=== PATIENT | male | born 1985 | race Caucasian/White ===

== ENCOUNTER → 2016-06-30 | Outpatient (REF) | payer MEDICARE, MEDICAID ==
[2016-06-30 15:16] LABS: ALBUMIN 4.3 GM/DL (3.2-5.2); ALBUMIN/GLOBULIN RATIO 1.23 (1.00-1.93); ALKALINE PHOSPHATASE 131 U/L (45-117); ALT/SGPT 45 U/L (12-78); ANION GAP 9 MEQ/L (8-16); AST/SGOT 35 U/L (15-37); BILIRUBIN,TOTAL 0.6 MG/DL (0.2-1.0); BLOOD UREA NITROGEN 16 MG/DL (7-18); CALCIUM LEVEL 9.8 MG/DL (8.5-10.1); CARBON DIOXIDE LEVEL 24 MEQ/L (21-32); CHLORIDE LEVEL 106 MEQ/L (98-107); CHOLESTEROL LEVEL 234 MG/DL (<200); CREATININE FOR GFR 1.08 MG/DL (0.70-1.30); GLOMERULAR FILTRATION RATE > 60.0 (>60); GLUCOSE, FASTING 95 MG/DL (70-105); POTASSIUM SERUM 4.3 MEQ/L (3.5-5.1); SODIUM LEVEL 139 MEQ/L (136-145); TOTAL PROTEIN 7.8 GM/DL (6.4-8.2); TRIGLYCERIDES LEVEL 264 MG/DL (<150)
== END ==
LOC: M SFHCADAM 10:13
PROVIDERS: ATTEND Physician Assistant Medical
DX: I10 Essential (primary) hypertension (principal); F34.1 Dysthymic disorder

== ENCOUNTER → 2016-07-31 | Emergency (ER) | payer MEDICARE, MEDICAID ==
[~2016-07-31] VITALS: Ht 175.3 cm; Wt 117.0 kg
[~2016-07-31] MED LIST: ENAL20TA PO; FLON1SPR; LORazepam 2 MG/ML VIAL (J2060) IV STA; NORCO 5/325MG TABLET (BULK FOR ED) PO ONE; NORCOTAB PO; PROPOFOL 200 MG/20 ML VIAL IV ONE; PROZ20CA11 PO
[2016-07-31 23:05] VITALS: BP 140/74
--- NOTE | 2016-08-01 12:40 | REP ---
RIGHT KNEE: Two views of the right knee are performed. There is lateral patellar dislocation. No definite fracture is seen of the visualized osseous structures. Signed by Nelson Burks MD 08/01/2016 07:48 P
--- NOTE | 2016-08-01 12:41 | REP ---
RIGHT KNEE: Two portable views of the right knee are performed status post reduction of patellar dislocation. Patella now appears to be in normal position, successfully reduced. No definite fracture is seen on these two limited portable views. Signed by Nelson Burks MD 08/01/2016 07:48 P
== END | disposition home or self-care (01) ==
LOC: EDUNIT# 20:50 → EDBD 20:56 → M ED 23:56
DX: S83.014A Lateral dislocation of right patella, initial encounter (principal); S86.911A Strain of unspecified muscle(s) and tendon(s) at lower leg level, right leg, initial encounter; W18.42XA Slipping, tripping and stumbling without falling due to stepping into hole or opening, initial encounter; Y92.89 Other specified places as the place of occurrence of the external cause; Y93.01 Activity, walking, marching and hiking; Y99.8 Other external cause status; Q78.0 Osteogenesis imperfecta; Z79.899 Other long term (current) drug therapy
CPT/HCPCS: 27560; 73560; 73564; 96374; 99152; 99153; 99285; J2060

== ENCOUNTER → 2017-02-05 | Outpatient (REF) | payer MEDICARE, MEDICAID ==
[~2017-02-05] MED LIST changes: -LORazepam 2 MG/ML VIAL (J2060) IV STA; -NORCO 5/325MG TABLET (BULK FOR ED) PO ONE; -PROPOFOL 200 MG/20 ML VIAL IV ONE
== END ==
LOC: M SFHCADAM 10:24
PROVIDERS: ATTEND Physician Assistant Medical
DX: E55.9 Vitamin D deficiency, unspecified (principal)

== ENCOUNTER → 2017-10-26 | Outpatient (REF) | payer MEDICARE, MEDICAID ==
[2017-10-26 19:27] LABS: BASO # 0.1 10^3/uL (0.0-0.2); BASO % 1.3 % (0.0-1.0); EOS # 0.3 10^3/uL (0.0-0.50); EOS % 3.4 % (0.0-3.0); HEMATOCRIT 47.7 % (42.0-52.0); HEMOGLOBIN 16.4 g/dl (13.5-17.5); IMMATURE GRANULOCYTE % 0.6 % (0-3.0); LYMPH # 2.7 10^3/uL (1.5-4.5); LYMPH % 27.6 % (24.0-44.0); MEAN CORPUSCULAR HEMOGLOBIN 30.5 pg (27.0-33.0); MEAN CORPUSCULAR HGB CONC 34.4 g/dl (32.0-36.5); MEAN CORPUSCULAR VOLUME 88.7 fl (80.0-96.0); MONO # 0.9 10^3/uL (0.0-0.8); MONO % 9.5 % (0.0-5.0); NEUTROPHILS # 5.6 10^3/uL (1.8-7.7); NEUTROPHILS % 57.6 % (36.0-66.0); PLATELET COUNT, AUTOMATED 302 10^3/uL (150-450); RED BLOOD COUNT 5.38 10^6/uL (4.30-6.10); WHITE BLOOD COUNT 9.7 10^3/uL (4.0-10.0)
[2017-10-26 19:54] LABS: ESTIMATED AVERAGE GLUCOSE 111 MG/DL (60-110); HEMOGLOBIN A1c 5.5 %
[2017-10-26 20:08] LABS: URIC ACID 7.5 MG/DL (3.5-7.2)
[2017-10-26 20:33] LABS: ALBUMIN 4.2 GM/DL (3.2-5.2); ALBUMIN/GLOBULIN RATIO 1.24 (1.00-1.93); ALKALINE PHOSPHATASE 116 U/L (45-117); ALT/SGPT 47 U/L (12-78); ANION GAP 7 MEQ/L (8-16); AST/SGOT 30 U/L (7-37); BILIRUBIN,TOTAL 0.4 MG/DL (0.2-1.0); BLOOD UREA NITROGEN 14 MG/DL (7-18); CALCIUM LEVEL 9.4 MG/DL (8.5-10.1); CARBON DIOXIDE LEVEL 25 MEQ/L (21-32); CHLORIDE LEVEL 108 MEQ/L (98-107); CHOLESTEROL LEVEL 224 MG/DL (<200); CHOLESTEROL RISK RATIO 7.225 (<5); CREATININE FOR GFR 0.92 MG/DL (0.70-1.30); GLOMERULAR FILTRATION RATE > 60.0 (>60); GLUCOSE, FASTING 95 MG/DL (70-100); HDL CHOLESTEROL 31 MG/DL (>40); NON-HDL-C 193 MG/DL; POTASSIUM SERUM 4.2 MEQ/L (3.5-5.1); SODIUM LEVEL 140 MEQ/L (136-145); THYROID STIMULATING HORMONE 0.889 uIU/ML (0.358-3.740); TOTAL PROTEIN 7.6 GM/DL (6.4-8.2); TRIGLYCERIDES LEVEL 699 MG/DL (<150)
== END ==
LOC: M SFHCADAM 13:58
DX: M1A.9XX0 Chronic gout, unspecified, without tophus (tophi) (principal); F34.1 Dysthymic disorder; I10 Essential (primary) hypertension; E55.9 Vitamin D deficiency, unspecified; E66.01 Morbid (severe) obesity due to excess calories; Z68.41 Body mass index [BMI] 40.0-44.9, adult; E78.4 Other hyperlipidemia; J30.1 Allergic rhinitis due to pollen; Q78.0 Osteogenesis imperfecta
CPT/HCPCS: 84443

== ENCOUNTER → 2018-08-04 | Outpatient (REF) | payer MEDICARE, MEDICAID ==
[~2018-08-04] MED LIST changes: +HYDR-3715 PO; -NORCOTAB PO
[2018-08-04 13:21] LABS: BASO # 0.2 10^3/uL (0.0-0.2); BASO % 1.7 % (0.0-1.0); EOS # 0.4 10^3/uL (0.0-0.50); HEMATOCRIT 49.9 % (42.0-52.0); HEMOGLOBIN 17.2 g/dl (13.5-17.5); LYMPH # 2.1 10^3/uL (1.5-4.5); LYMPH % 22.8 % (24.0-44.0); MEAN CORPUSCULAR HEMOGLOBIN 30.4 pg (27.0-33.0); MEAN CORPUSCULAR HGB CONC 34.5 g/dl (32.0-36.5); MEAN CORPUSCULAR VOLUME 88.3 fl (80.0-96.0); MONO # 0.9 10^3/uL (0.0-0.8); MONO % 9.9 % (0.0-5.0); NEUTROPHILS # 5.6 10^3/uL (1.8-7.7); NEUTROPHILS % 61.2 % (36.0-66.0); PLATELET COUNT, AUTOMATED 304 10^3/uL (150-450); RED BLOOD COUNT 5.65 10^6/uL (4.30-6.10); WHITE BLOOD COUNT 9.2 10^3/uL (4.0-10.0)
[2018-08-04 13:39] LABS: ALBUMIN 4.3 GM/DL (3.2-5.2); ALT/SGPT 35 U/L (12-78); BILIRUBIN,TOTAL 0.4 MG/DL (0.2-1.0); BLOOD UREA NITROGEN 15 MG/DL (7-18); CALCIUM LEVEL 10.3 MG/DL (8.5-10.1); CARBON DIOXIDE LEVEL 26 MEQ/L (21-32); CHLORIDE LEVEL 106 MEQ/L (98-107); CHOLESTEROL LEVEL 219 MG/DL (<200); CHOLESTEROL RISK RATIO 6.257 (<5); CREATININE FOR GFR 0.96 MG/DL (0.70-1.30); GLOMERULAR FILTRATION RATE > 60.0 (>60); GLUCOSE, FASTING 102 MG/DL (70-100); HDL CHOLESTEROL 35 MG/DL (>40); LDL CHOLESTEROL 141 MG/DL (<100); NON-HDL-C 184 MG/DL; POTASSIUM SERUM 4.1 MEQ/L (3.5-5.1); SODIUM LEVEL 139 MEQ/L (136-145); TOTAL 25(OH) VITAMIN D 18.7 NG/ML (30.0-100.0); TOTAL PROTEIN 7.5 GM/DL (6.4-8.2); TRIGLYCERIDES LEVEL 216 MG/DL (<150); URIC ACID 8.4 MG/DL (3.5-7.2)
== END ==
LOC: M SFHCADAM 07:58
PROVIDERS: ATTEND Physician Assistant Medical
DX: E55.9 Vitamin D deficiency, unspecified (principal); E78.49 Other hyperlipidemia; M1A.9XX0 Chronic gout, unspecified, without tophus (tophi); E78.1 Pure hyperglyceridemia

== ENCOUNTER → 2018-09-21 | Outpatient (REF) | payer MEDICARE, MEDICAID ==
[2018-09-21 13:31] LABS: HEMOGLOBIN A1c 5.7 %
== END ==
LOC: M SFHCADAM 09:55
PROVIDERS: ATTEND Physician Assistant Medical
DX: R73.01 Impaired fasting glucose (principal); M1A.0790 Idiopathic chronic gout, unspecified ankle and foot, without tophus (tophi)

== ENCOUNTER → 2019-02-21 | Outpatient (REF) | payer MEDICARE, MEDICAID ==
[2019-02-21 12:51] LABS: ALBUMIN 4.1 GM/DL (3.2-5.2); ALT/SGPT 44 U/L (12-78); BILIRUBIN,TOTAL 0.5 MG/DL (0.2-1.0); BLOOD UREA NITROGEN 11 MG/DL (7-18); CALCIUM LEVEL 9.5 MG/DL (8.5-10.1); CARBON DIOXIDE LEVEL 26 MEQ/L (21-32); CHLORIDE LEVEL 108 MEQ/L (98-107); CHOLESTEROL LEVEL 226 MG/DL (<200); CHOLESTEROL RISK RATIO 6.277 (<5); CREATININE FOR GFR 0.95 MG/DL (0.70-1.30); GLOMERULAR FILTRATION RATE > 60.0 (>60); GLUCOSE, FASTING 102 MG/DL (70-100); HDL CHOLESTEROL 36 MG/DL (>40); LDL CHOLESTEROL 116 MG/DL (<100); NON-HDL-C 190 MG/DL; POTASSIUM SERUM 4.3 MEQ/L (3.5-5.1); SODIUM LEVEL 140 MEQ/L (136-145); TOTAL PROTEIN 7.9 GM/DL (6.4-8.2); TRIGLYCERIDES LEVEL 372 MG/DL (<150)
[2019-02-21 13:37] LABS: HEMOGLOBIN A1c 5.5 %
== END ==
LOC: M SFHCADAM 09:59
PROVIDERS: ATTEND Physician Assistant Medical
DX: M1A.9XX0 Chronic gout, unspecified, without tophus (tophi) (principal); E78.1 Pure hyperglyceridemia

== ENCOUNTER → 2019-07-01 | Outpatient (CLI) | payer MEDICARE, MEDICAID ==
--- NOTE | 2019-07-01 15:05 | REP ---
ELBOW: REASON: Pain. FINDINGS: There is no acute fracture, dislocation, subluxation, or joint effusion. Electronically Signed by Juarez Rowe DO 07/01/2019 03:14 P
== END ==
LOC: M ADAMS 13:23
PROVIDERS: ATTEND Physician Assistant
DX: M25.521 Pain in right elbow (principal)

== ENCOUNTER → 2019-09-06 | Outpatient (REF) | payer MEDICARE, MEDICAID ==
[2019-09-06 13:34] LABS: HEMOGLOBIN A1c 5.6 %
[2019-09-06 13:49] LABS: ALBUMIN 4.1 GM/DL (3.2-5.2); ALT/SGPT 37 U/L (12-78); BILIRUBIN,TOTAL 0.5 MG/DL (0.2-1.0); BLOOD UREA NITROGEN 16 MG/DL (7-18); CALCIUM LEVEL 9.3 MG/DL (8.5-10.1); CARBON DIOXIDE LEVEL 26 MEQ/L (21-32); CHLORIDE LEVEL 111 MEQ/L (98-107); CHOLESTEROL LEVEL 218 MG/DL (<200); CHOLESTEROL RISK RATIO 6.055 (<5); CREATININE FOR GFR 0.98 MG/DL (0.70-1.30); GLOMERULAR FILTRATION RATE > 60.0 (>60); GLUCOSE, FASTING 91 MG/DL (70-100); HDL CHOLESTEROL 36 MG/DL (>40); LDL CHOLESTEROL 122 MG/DL (<100); NON-HDL-C 182 MG/DL; POTASSIUM SERUM 4.4 MEQ/L (3.5-5.1); SODIUM LEVEL 142 MEQ/L (136-145); THYROID STIMULATING HORMONE 0.584 uIU/ML (0.358-3.740); TOTAL 25(OH) VITAMIN D 23.1 NG/ML (30.0-100.0); TOTAL PROTEIN 7.3 GM/DL (6.4-8.2); TRIGLYCERIDES LEVEL 300 MG/DL (<150); URIC ACID 5.4 MG/DL (3.5-7.2)
== END ==
LOC: M SFHCADAM 11:08
PROVIDERS: ATTEND Physician Assistant Medical
DX: E55.9 Vitamin D deficiency, unspecified (principal); E78.1 Pure hyperglyceridemia; E78.2 Mixed hyperlipidemia; R73.01 Impaired fasting glucose; M1A.9XX0 Chronic gout, unspecified, without tophus (tophi); Z79.899 Other long term (current) drug therapy

== ENCOUNTER → 2020-01-07 | Outpatient (CLI) | payer MEDICARE, MEDICAID ==
[~2020-01-07] MED LIST changes: +ECOT81TA5 PO; -ENAL20TA PO; +ENAL20TA11 PO; +HYDR25TAB PO; +OXYC-517 PO; +PRED20TA PO; +ZYLO300T6 PO
== END ==
LOC: M LABSMTC 08:17
PROVIDERS: ATTEND Anesthesiology
DX: Z01.812 Encounter for preprocedural laboratory examination (principal); Z20.828 Contact with and (suspected) exposure to other viral communicable diseases
CPT/HCPCS: C9803; U0003

== ENCOUNTER 2020-01-12 07:27 | Inpatient (IN) | payer MEDICARE, MEDICAID ==
--- NOTE | 2020-01-11 11:49 | HPE ---
DATE OF ANTICIPATED ADMISSION: 01/12/2020 CHIEF COMPLAINT: Right foot deformity. HISTORY OF PRESENT ILLNESS: Stefano Lyman is a pleasant, 34-year-old male who is here in regard to his right foot deformity. He is set up for surgery tomorrow. He is having pain in his foot and has a fairly significant deformity. PAST MEDICAL HISTORY: 1. Hypertension. 2. Osteogenesis imperfecta. PAST SURGICAL HISTORY: 1. Left femur. 2. Left hip. 3. Left elbow. 4. Left wrist. ALLERGIES: No known drug allergies. 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 He lives alone. He does not smoke. PHYSICAL EXAMINATION: General: Well-appearing, alert and oriented, no acute distress. Pulmonary: Regular and unlabored breathing. Cardiovascular: Regular, dorsalis pedis pulse. Musculoskeletal: In the right foot there is a supination and deformity associated with dislocation of the great toe. He is neurovascularly intact. IMAGING: Right foot x-rays show dorsiflexed 1st metatarsal and subluxation of the great toe. IMPRESSION: Right foot deformity. PLAN: Patient will be admitted to the hospital postoperatively. He will be undergoing surgical correction of his right foot deformity. Risks and benefits of surgery were discussed with him in detail and include but are not limited to infection, damage to nerves and blood vessels, continued pain and stiffness, need for additional procedures. Informed consent was obtained in the office. All of his questions were answered and he was in agreement with this plan. GRETA
[2020-01-12] VITALS (9 sets, daily range): BP systolic 145–165; BP diastolic 80–99; O2SAT 92
[~2020-01-12] VITALS: Ht 177.8 cm; Wt 127.5 kg
[~2020-01-12 07:27] MED LIST changes: -ECOT81TA5 PO; -HYDR25TAB PO; +LR 1,000 ML IV ONE; +MIDAZOLAM INJ 2MG/2ML VIAL (J2250 PER 1MG) IV SCH; -OXYC-517 PO; -PRED20TA PO; +fentaNYL 100 MCG/2 ML INJECTION (J3010) IV SCH
[2020-01-12] MEDS ORDERED: ROPIvacaine 0.5% 30ML INJECTION (J2795 PER 1MG) ONE (07:28)
[2020-01-12] MEDS ORDERED: PRED20TA PO (07:57)
[2020-01-12] MEDS ORDERED: HYDR25TAB PO (07:57)
[2020-01-12] MEDS ORDERED: ceFAZolin 2 GM/D5W 50 ML IV BAG (J0690 PER 500MG) As Ordered ONE (08:28)
[2020-01-12] MEDS ORDERED: fentaNYL 100 MCG/2 ML INJECTION (J3010) As Ordered ONE ×4 (08:39→13:20)
[2020-01-12] MEDS ORDERED: MIDAZOLAM INJ 2MG/2ML VIAL (J2250 PER 1MG) As Ordered ONE ×2 (08:39→09:01)
[2020-01-12] MEDS ORDERED: ceFAZolin SOD 2 GM in IV 1 EA IV ONE (09:00)
[2020-01-12] MEDS ORDERED: LIDOCAINE 2% 100MG/5ML SDV (FOR ANES.) As Ordered ONE (09:01)
[2020-01-12] MEDS ORDERED: ONDANSETRON 4MG/2ML VIAL As Ordered ONE (09:01)
[2020-01-12] MEDS ORDERED: METOCLOPRAMIDE INJ 10MG/2ML VIAL (J2765 PER 1) As Ordered ONE (09:01)
[2020-01-12] MEDS ORDERED: propofoL 200 MG/20 ML VIAL As Ordered ONE (09:01)
[2020-01-12] MEDS ORDERED: PHENYLephrine HCL 500 MCG/5 ML (100MCG/ML) SYRINGE (J2370) As Ordered ONE (10:40)
[2020-01-12] MEDS ORDERED: ePHEDrine SULFATE 25 MG/5 ML(5MG/ML) SYRINGE As Ordered ONE (10:40)
[2020-01-12] MEDS ORDERED: VASOPRESSIN INJ 20 UNITS/ML VIAL As Ordered ONE (11:08)
[2020-01-12] MEDS ORDERED: ROCURONIUM BROMIDE 50 MG/5 ML VIAL As Ordered ONE (11:43)
[2020-01-12] MEDS ORDERED: SUGAMMADEX SODIUM 500 MG/5 ML VIAL (BRIDION) As Ordered ONE (13:20)
[2020-01-12] MEDS: LABETALOL 100MG/20ML VIAL IV SCH ×2 (14:00→14:05)
--- NOTE | 2020-01-12 14:08 | REP ---
INDICATION: RIGHT FOOT DEFORMITIES - MINI C-ARM. COMPARISON: CT 09/26/2019. TECHNIQUE: Multiple C-arm views right foot performed. FINDINGS: Metallic plate and screws are placed, bridging the base of 1st metatarsal to the adjacent medial cuneiform, also the head of the 1st metatarsal to the 1st proximal phalanx. IMPRESSION: 64 seconds fluoroscopy time utilized. <Electronically signed by Nelson Burks > 01/12/20 [id number]
[2020-01-12] MEDS ORDERED: LABETALOL 100MG/20ML VIAL As Ordered ONE (14:19)
[2020-01-12] MEDS ORDERED: ONDANSETRON 4MG/2ML VIAL IV PRN ×2 (14:30)
[2020-01-12] MEDS ORDERED: oxyCODONE 5MG TAB PO PRN ×3 (14:30)
[2020-01-12] MEDS ORDERED: fentaNYL 100 MCG/2 ML INJECTION (J3010) IV PRN (14:30)
[2020-01-12] MEDS ORDERED: LR 1,000 ML IV SCH ×2 (14:30)
[2020-01-12] MEDS ORDERED: MORPHINE 2 MG/ML 1ML VIAL (J2270) IV PRN (14:30)
[2020-01-12] MEDS: ACETAMINOPHEN 500 MG TAB PO SCH ×2 (15:00→21:04)
[2020-01-12] MEDS: ceFAZolin SOD 2 GM in IV 1 EA IV SCH (18:52)
[2020-01-13] MEDS: ceFAZolin SOD 2 GM in IV 1 EA IV SCH ×2 (01:48→09:24)
[2020-01-13 02:00] VITALS: BP 150/78
[2020-01-13 02:16] VITALS: BP 155/89
[2020-01-13] MEDS: ACETAMINOPHEN 500 MG TAB PO SCH ×2 (05:48→14:33)
[2020-01-13 06:00] VITALS: BP 152/88
[2020-01-13] MEDS ORDERED: ECOT81TA5 PO (06:11)
[2020-01-13] MEDS ORDERED: OXYC-517 PO (06:11)
[2020-01-13 09:00] VITALS: O2SAT 97
[2020-01-13] MEDS ORDERED: INFLUENZA QUADRIVALENT PF VACCINE 0.5ML SYRINGE IM ONE (09:00)
[2020-01-13] MEDS ORDERED: ASPIRIN 81 MG ENTERIC TAB PO SCH (09:00)
[2020-01-13] MEDS ORDERED: ceFAZolin SOD 2 GM in IV 1 EA IV ONE ×2 (14:00→15:30)
[2020-01-13 14:15] VITALS: BP 160/94
[2020-01-13 14:30] VITALS: BP 146/88
--- NOTE | 2020-01-23 07:18 | DS ---
DATE OF ADMISSION: 01/12/2020 DATE OF DISCHARGE: 01/13/2020 ATTENDING PHYSICIAN: Nallely Buitrago MD ADMITTING DIAGNOSIS: Right foot deformity. DISCHARGE DIAGNOSIS: Right foot deformity; status post right first MTP arthrodesis with the use of calcaneal bone graft from the right side. OTHER DIAGNOSES: Hypertension and osteogenesis imperfecta. DISCHARGE DIAGNOSIS: Right foot deformity; status post right first TMT arthrodesis and first MTP arthrodesis with the use of calcaneal bone grafting. HISTORY: This is a 34-year-old male patient with progressively worsening deformity to the right foot. It affected his activities of daily living. He elected for surgery for his symptoms. Operation performed was a right TMT arthrodesis and right first MTP arthrodesis with the use of right calcaneal bone graft. HOSPITAL COURSE: The patient was admitted on the day of surgery and underwent the above listed procedure. The procedure was well tolerated by the patient without incident. Hospital stay was without complications. He was up with physical therapy per the protocol. He was non-weightbearing on his right lower extremity. He will use aspirin b.i.d. per protocol for DVT prophylaxis. He was given instructions to include but not limited to wound monitoring and activity limitation and his weightbearing status. He will use oral pain medications for pain control. He will resume his preoperative medications and diet. He will follow-up in our office in 7 to 10 days for surgical follow-up. Please refer to the medical record for further details. GRETA
--- NOTE | 2020-02-26 09:34 | RO ---
OPERATIVE NOTE DATE OF OPERATION: 01/12/2020 PREOPERATIVE DIAGNOSIS: Right complex foot deformity. POSTOPERATIVE DIAGNOSIS: Right complex foot deformity. PROCEDURE: 1. Right tarsometatarsal arthrodesis with insertion of allograft wedge for correction of dorsiflexion deformity. 2. Right 1st metatarsophalangeal joint arthrodesis. 3. Right calcaneal bone graft. 4. Use of the mini C-arm. Please note, we will bill a modifier 22 for this case given the complex deformity correction. SURGEON: Nallely Buitrago MD RESOURCING ADVISOR: ROCCO Barnett ESTIMATED BLOOD LOSS: 100 cc COMPLICATIONS: None. CONDITION: Stable in recovery. INDICATOINS: Stefano Lyman is a 34-year-old male with osteogenesis imperfecta. He has sustained many fractures throughout this life and has developed a complex deformity mainly through his forefoot with almost complete dislocation of his great toe and dorsiflexion of the 1st metatarsal. He has failed conservative measures. Risks and benefits of the surgery were discussed with him in detail, include but are not limited to infection, damage to nerves and blood vessels, continued pain and stiffness and need for additional procedures. Informed consent was obtained. OPERATIVE PROCEDURE: The patient was met in the preoperative holding area where his right lower extremity was marked as the correct operative site. He was taken to the operating room and placed in the supine position on the operating room table. He was given antibiotics within 60 minutes prior to incision. The right lower extremity was prepped and draped in the normal sterile fashion. An official time-out was held where the correct the patient, operative side and operative procedure were verified. The right lower extremity was exsanguinated with an Esmarch tourniquet and the tourniquet was inflated to 250 mmHg. An incision was made over the first tarsometatarsal (TMP) joint extending down over the 1st MTP joints. The 1st TMP joint capsule was incised. Cartilage was removed from both sides of the joint. The joint was further prepared with subchondral drilling with a 0-062 K-wire and fish-scaling with a Hickory osteotome. There was a quite severe dorsiflexion deformity through the 1st ray. This was unable to be fully corrected just with plantar flexion at the TMP joint. I then decided to use an Arthrex allograft wedge to help plantar flex down the joint. This was about a 4 mm wedge. It worked nicely. When I was able to cut the deformity, it was pinned in place using two 0.062 K-wires. An incision was made over the lateral heel. Careful dissection of the bone was performed and 2 to 3 plugs of calcaneal bone graft was removed. The area was irrigated and closed with a 3-0 Vicryl with 2-0 nylon. Some of the calcaneal bone graft had been placed in TMP joint prior to pinning. At this point, my attention was turned to 1st MTP joint. There was quite a significant varus deformity at the 1st MTP joint with near complete dislocation of the toe. The toe was brought back to a more neutral position. I left it in slight varus, as otherwise it would be encroaching on the second toe and would necessitate further surgery to other all toes to completely correct it. The toe and forefoot were plantigrade in a good position upon examination with a flat plate. The great toe was just slightly dorsiflexed at the MTP joints, but there was good plantar flexion through the 1st TMP joint where he had the prior deformity. The 1st MTP joint was prepared similarly to the TMP joint. A calcaneal bone graft was inserted. The toe was pinned in place. After I had the deformity reduced, I then proceeded with fixation. I used a 4-0 cannulated screw across the 1st TMP joint. There is good compression of the joint. I further secured this using an Arthrex plate. For the s1st MTP joint, I similarly used a lag across the joint and then I used a straight plate across the 1st MTP joint given his deformity. During the case, mini C-arm was used by myself in AP, Oblique and lateral views. Hardware placement and deformity correction was satisfactory. Copious irrigation was performed. The capsule was closed on the MTP joint and TMP joint with 0 Vicryl. The subcutaneous tissues were closed with 3-0 Vicryl and skin was closed with 3-0 nylon. Sterile dressing was applied followed by a well-padded splint. The patient was extubated and transferred to the recovery room in stable condition. ROCCO Barnett was present for the entire case and was essential for soft tissue retraction, hardware placement and overall decrease tourniquet time. PLAN: The patient will be nonweightbearing for approximately 8 weeks. He will need to be in a cast or splint for the first four weeks. He will be on aspirin for deep venous thrombosis (DVT) prophylaxis. I will see him back in two weeks for suture removal.
== END 2020-01-13 15:37 | disposition home or self-care (01) | DRG 505 ==
LOC: M SDC 07:27 → M MS5PR 15:00 → M SDC 15:27 → M ED INP 15:27 → M MS5PR 15:30
PROVIDERS: ADMIT Orthopaedic Surgery; ATTEND Orthopaedic Surgery
PROC: 0SGL07Z Fusion of Left Tarsometatarsal Joint with Autologous Tissue Substitute, Open Approach (ICD-10-PCS; 2020-01-12)
PROC: 0SGM07Z Fusion of Right Metatarsal-Phalangeal Joint with Autologous Tissue Substitute, Open Approach (ICD-10-PCS; principal; 2020-01-12 08:45)
DX: Q78.0 Osteogenesis imperfecta (principal); Q68.8 Other specified congenital musculoskeletal deformities; I10 Essential (primary) hypertension; Z79.899 Other long term (current) drug therapy

== ENCOUNTER 2020-04-26 02:06 | Emergency (ER) | payer MEDICARE, MEDICAID ==
[~2020-04-26] VITALS: Ht 175.3 cm; Wt 122.9 kg
[2020-04-26 02:06] VITALS: BP 194/116
[~2020-04-26 02:06] MED LIST changes: +ECOT81TA5 PO; +HYDR25TAB PO; -LR 1,000 ML IV ONE; -MIDAZOLAM INJ 2MG/2ML VIAL (J2250 PER 1MG) IV SCH; +OXYC-517 PO; +PRED20TA PO; -fentaNYL 100 MCG/2 ML INJECTION (J3010) IV SCH
--- OUTSIDE RECORDS SUMMARY | 2020-04-26 02:12 | CCD | Continuity of Care Document ---
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 Name Role Phone SandhuMami [facility] AUTM Hugh Silverman MD Unavailable Problems Active Problems Provider Date Closed fracture of olecranon process of ulna Onset: 01/10/1999 Essential hypertension Onset: 02/07/2016 Social History Type Date Description Comments Sex Unknown Tobacco Use Start: Unknown Never Smoked Cigarettes ETOH Use Denies alcohol use Tobacco Use Start: Unknown Denies Smoking Smoking Status Reviewed: 04/16/20 Denies Smoking Allergies, Adverse Reactions, Alerts Description No Known Drug Allergies Medications Active Medications SIG Qnty Indications Ordering Provide r Date Oxycodone HCL 5mg Tablets 1 -2 tablets by mouth every four hours as needed for post surgical pain 30tabs Nallely Buitrago MD 01/10/2020 Prozac Capsules 1 po qd Unknown Fosamax 70mg Tablets 1 tab by mouth weekly. take with water, 30 minutes before eating. do not lie down for 30 minutes Unknown Allopurinol 300mg Tablets Mami [facility], [facility] Enalapril Maleate 20mg Tablets [facility], [facility] Hydrochlorothiazide 25mg Tablets Mami Grady, [facility] Chlorhexidine Gluconate 0.12% Solution Unknown Prednisone 20mg Tablets Portia Cruz PA Fluoxetine HCL 20mg Capsules [facility], [facility] Cefdinir 300mg Capsules Page Junior PA Immunizations Description No Information Available Vital Signs Date Vital Result Comment 02/26/2020 11:00am Body Temperature 96.2 F 01/19/2020 3:18pm Body Temperature 96.0 F Results Test Acquired Date Facility Test Result H/L Range Note Order 11/15/2019 [facility] nter Surgery <pending> Procedures Date Code Description Status 04/19/2020 24597 Therapeutic Procedure, Each 15 M inutes Completed 04/16/2020 48730 Manual Therapy Each 15 Minutes C ompleted 04/16/2020 68321 Therapeutic Procedure, Each 15 M inutes Completed 04/16/2020 47183 X-Ray Foot Complete Completed 04/11/2020 70923 Manual Therapy Each 15 Minutes C ompleted 04/11/2020 19225 Therapeutic Procedure, Each 15 M inutes Completed 04/09/2020 12865 Therapeutic Procedure, Each 15 M inutes Completed 04/05/2020 56992 Therapeutic Procedure, Each 15 M inutes Completed 04/02/2020 10404 Therapeutic Procedure, Each 15 M inutes Completed 03/29/2020 14205 Physical Therapy Eval - Low Comp lexity Completed 03/26/2020 39294 X-Ray Foot Complete Completed 03/12/2020 18190 X-Ray Foot Complete Completed 02/26/2020 44217 X-Ray Foot Complete Completed 02/01/2020 67482 X-Ray Foot Complete Completed 01/26/2020 26510 Apply Splint Short Leg Completed 01/19/2020 70966 X-Ray Foot Complete Completed 01/19/2020 77425 Apply Splint Short Leg Completed 01/12/2020 24412 Arthrodesis Great Toe MP JT Comp leted 01/12/2020 73457 Arthrodesis Midtarsal/Tarsometat arsal Single Completed 01/12/2020 06865 Arthrodesis Midtarsal/Tarsometat arsal Single Completed 01/12/2020 22314 Remove Bone For Graft Minor/Smal l Completed 01/12/2020 Remove Bone For Graft Minor/Smal l Completed Medical Devices Description No Information Available Encounters Type Date Location Provider Dx Diagnosis Office Visit 03/26/2020 10:00a Ashley Buitrago MD Z47. 89 Encounter for other orthopedic aftercare Z98.1 Arthrodesis status Assessments Date Code Description Provider 04/19/2020 Z47.89 Encounter for other orthopedic a ftercare Dino Patel PT, DPT 04/19/2020 Z98.1 Arthrodesis status Dino cesar, PT, DPT 04/16/2020 Z47.89 Encounter for other orthopedic a ftercare Becky Scee P.T.A. 04/16/2020 Z47.89 Encounter for other orthopedic a ftercare Nallely Buitrago MD 04/16/2020 Z98.1 Arthrodesis status Becky Scee P.T.A. 04/16/2020 Z98.1 Arthrodesis status Nallely hdez MD 04/11/2020 Z47.89 Encounter for other orthopedic a ftercare Becky Scee P.T.A. 04/11/2020 Z98.1 Arthrodesis status Becky Scee P.T.A. 04/09/2020 Z47.89 Encounter for other orthopedic a ftercare Danamarie Ortolano, SENIOR RESEARCH CONSULTANT 04/09/2020 Z98.1 Arthrodesis status Danamarie Ort toni, SENIOR RESEARCH CONSULTANT 04/05/2020 Z47.89 Encounter for other orthopedic a ftercare Becky Scee P.T.A. 04/05/2020 Z98.1 Arthrodesis status Becky Scee P.T.A. 04/02/2020 Z47.89 Encounter for other orthopedic a ftercare Becky Scee P.T.A. 04/02/2020 Z98.1 Arthrodesis status Becky Scee P.T.A. 03/29/2020 Z47.89 Encounter for other orthopedic a ftercare Dino Patel, PT, DPT 03/29/2020 Z98.1 Arthrodesis status Dino cesar, PT, DPT 03/26/2020 Z47.89 Encounter for other orthopedic a ftercare Nallely Buitrago MD 03/26/2020 Z98.1 Arthrodesis status Nallely hdez MD 03/12/2020 Z47.89 Encounter for other orthopedic a ftercare Nallely Buitrago MD 03/12/2020 Z98.1 Arthrodesis status Nallely hdez MD 02/26/2020 Z47.89 Encounter for other orthopedic a ftrakanare Nallely Buitrago MD 02/26/2020 Z98.1 Arthrodesis status Nallely hdez MD 02/01/2020 Z47.89 Encounter for other orthopedic a ftrakanare Nallely Buitrago MD 02/01/2020 Z98.1 Arthrodesis status Nallely hdez MD 01/26/2020 Z47.89 Encounter for other orthopedic a ftercare Peiter Millard PA-C 01/26/2020 Z47.89 Encounter for other orthopedic a ftercare Pieter Millard PA-C 01/26/2020 Z98.1 Arthrodesis status Pieter deal PA-C 01/26/2020 Z47.89 Encounter for other orthopedic a ftrakanare Nallely Buitrago MD 01/26/2020 Z98.1 Arthrodesis status Nallely hdez MD 01/26/2020 Z98.1 Arthrodesis status Pieter deal PA-C 01/19/2020 Z47.89 Encounter for other orthopedic a ftrakanare Nallely Buitrago MD 01/19/2020 Z98.1 Arthrodesis status Nallely hdez MD 01/12/2020 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 Pieter Millard PA-C 01/12/2020 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 Nallely Buitrago MD 01/12/2020 Q78.0 Osteogenesis imperfecta Pieter Millard PA-C 01/12/2020 Q78.0 Osteogenesis imperfecta Nallely Buitrago MD 01/11/2020 Z01.818 Encounter for other preprocedura l examination Nallely Buitrago MD 01/11/2020 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 Nallely Buitrago MD 01/11/2020 Q78.0 Osteogenesis imperfecta Nallely Buitrago MD 11/10/2019 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 Nallely Buitrago MD 11/10/2019 Q78.0 Osteogenesis imperfecta Nallely Buitrago MD Plan of Treatment Future Appointment(s):* 04/30/2020 3:00 pm - Becky Steen [facility] at [facility] Therapy * 05/03/2020 2:30 pm - Becky Garcia.T[facility] at Physical Therapy 04/16/2020 - Nallely Buitrago MD* Z47.89 Encounter for other orthopedic aftercare * Z98.1 Arthrodesis status* Follow up:* f/u in 6 weeks with BMS with Xrays right foot wb Functional Status Description No Information Available Mental Status Description No Information Available Referrals Refer to Dr Reason for Referral Status Appt Date Fernando Talbot MD PT BASED ON MED. [facility] TO PT DEPT. NT Created [address] [place] [address], [place] [address] [phone] Fernando Talbot MD SURGERY NO AUTH REQUIRED FO R RT FOOT SURGERY ([id number], [id number],) TO SURGERY NT Created [address] [place] [address], [address] [place] [address] [phone]
--- OUTSIDE RECORDS SUMMARY | 2020-04-26 02:13 | CCD | Continuity of Care Document ---
Author Author Stefano OSMAN PURCHASING EXPEDITOR Organization Unknown Address [address] [address] Phone [phone] Care Team Providers Care Dormitory Supervisor Name Role Phone SandhuMami RPA AUTM Hugh Silverman MD Unavailable Problems Active Problems Provider Date Closed fracture of olecranon process of ulna Onset: 01/10/1999 Essential hypertension Onset: 02/07/2016 Social History Type Date Description Comments Sex Unknown Tobacco Use Start: Unknown Never Smoked Cigarettes ETOH Use Denies alcohol use Tobacco Use Start: Unknown Denies Smoking Smoking Status Reviewed: 09/18/19 Denies Smoking Allergies, Adverse Reactions, Alerts Description [...] minutes Unknown Allopurinol 300mg Tablets [facility]ami [facility], [facility] Enalapril Maleate 20mg Tablets Mami [facility], [facility] Hydrochlorothiazide 25mg Tablets Mami Grady, [facility] Chlorhexidine Gluconate 0.12% Solution Unknown Prednisone 20mg Tablets Portia Cruz PA Fluoxetine HCL 20mg Capsules Mami [facility], [facility] Cefdinir 300mg Capsules [place], ROCCO Brooks Immunizations Description No Information Available Vital Signs Date Vital Result Comment 02/26/2020 11:00am Body Temperature 96.2 F 01/19/2020 3:18pm Body Temperature 96.0 F Results Test Acquired Date Facility Test Result H/L Range Note Order 11/15/2019 [facility] nter Surgery <pending> Procedures Date Code Description Status 04/05/2020 75878 Therapeutic Procedure, Each 15 M inutes Completed 04/02/2020 29873 Therapeutic Procedure, Each 15 M inutes Completed 03/29/2020 37160 Physical Therapy Eval - Low Comp lexity Completed 03/26/2020 08663 X-Ray Foot Complete Completed 03/12/2020 96232 X-Ray Foot Complete Completed 02/26/2020 38715 X-Ray Foot Complete Completed 02/01/2020 61713 X-Ray Foot Complete Completed 01/26/2020 96601 Apply Splint Short Leg Completed 01/19/2020 66045 X-Ray Foot Complete Completed 01/19/2020 07123 Apply Splint Short Leg Completed 01/12/2020 18561 Arthrodesis Great Toe MP JT Comp leted 01/12/2020 35544 Arthrodesis Midtarsal/Tarsometat arsal Single Completed 01/12/2020 17788 Arthrodesis Midtarsal/Tarsometat arsal Single Completed 01/12/2020 67587 Remove Bone For Graft Minor/Smal l Completed 01/12/2020 08960 Remove Bone For Graft Minor/Smal l Completed Medical Devices Description No Information Available Encounters Type Date Location Provider Dx Diagnosis Office Visit 03/26/2020 10:00a Ashley Buitrago MD Z47. 89 Encounter for other orthopedic aftercare Z98.1 Arthrodesis status Assessments Date Code Description Provider 04/05/2020 Z98.1 Arthrodesis status Becky Scee P.T.A. 04/05/2020 Z47.89 Encounter for other orthopedic a ftercare Becky Scee P.T.A. 04/02/2020 Z98.1 Arthrodesis status Becky Scee P.T.A. 04/02/2020 Z47.89 Encounter for other orthopedic a ftercare Becky Scee P.T.A. 03/29/2020 Z98.1 Arthrodesis status Dino cesar, PT, DPT 03/29/2020 Z47.89 Encounter for other orthopedic a ftercare Dino Bah, PT, DPT 03/26/2020 Z47.89 Encounter for other orthopedic a ftrakanare Nallely Buitrago MD 03/26/2020 Z98.1 Arthrodesis status [...] orthopedic a ftercare Pieter Millard PA-C 01/26/2020 Z47.89 Encounter for other orthopedic a ftercare Pieter Millard PA-C 01/26/2020 Z98.1 Arthrodesis status Pieter deal PA-C 01/26/2020 Z47.89 Encounter for other orthopedic a ftercare Nallely Buitrago MD 01/26/2020 Z98.1 Arthrodesis status Nallely hdez MD 01/26/2020 Z98.1 Arthrodesis status Pieter deal PA-C 01/19/2020 Z47.89 Encounter for other orthopedic a ftercare Nallely Buitrago MD 01/19/2020 Z98.1 Arthrodesis status [...] Buitrago MD Plan of Treatment Future Appointment(s):* 04/11/2020 11:30 am - Becky Steen P.T.A. at Physical Therapy * 04/16/2020 10:30 am - Nallely Buitrago MD at [place] Functional Status Description No Information Available Mental Status Description No Information Available Referrals Refer to Reason for Referral Status Appt Date Fernando Talbot MD PT BASED ON MED. [facility] TO PT DEPT. NT Created [address] [place] [address], [place] [address] [phone] Fernando Talbot MD SURGERY NO AUTH REQUIRED FO R RT FOOT SURGERY ([id number], [id number],) TO SURGERY NT Created [address] [place] [address] [phone]
--- OUTSIDE RECORDS SUMMARY | 2020-04-26 02:13 | CCD | Continuity of Care Document ---
Author Author Stefano MALIK MD Organization Unknown Address [address] [address] Phone [phone] Care Team Providers Care Computer Operations Supervisor Name Role Phone Phoebe Mami Ageee [facility] AUTM Hugh Silverman MD AUT Unavailable Problems Active Problems Provider Date Closed [...] needed for post surgical pain 30tabs Nallely Malik MD 01/10/2020 Prozac Capsules 1 po qd Unknown Fosamax 70mg Tablets 1 tab by mouth weekly. take with water, 30 minutes before eating. do not lie down for 30 minutes Unknown Allopurinol 300mg Tablets Mami Heart [facility] Enalapril Maleate 20mg Tablets Mami Heart, [facility] Hydrochlorothiazide 25mg Tablets Mami Grady, [facility] Chlorhexidine Gluconate 0.12% Solution Unknown Prednisone 20mg Tablets Portia Cruz PA Fluoxetine HCL 20mg Capsules Mami Heart [facility] Cefdinir 300mg Capsules Page Junior PA Immunizations Description No Information Available Vital Signs Date Vital Result Comment 02/26/2020 11:00am Body Temperature 96.2 F 01/19/2020 3:18pm Body Temperature 96.0 F Results Test Acquired Date Facility Test Result H/L Range Note Order 11/15/2019 [facility] nter Surgery <pending> Procedures Date Code Description Status 04/19/2020 06609 Therapeutic Procedure, Each 15 M inutes Completed 04/16/2020 49347 Manual Therapy Each 15 Minutes C ompleted 04/16/2020 19002 Therapeutic Procedure, Each 15 M inutes Completed 04/16/2020 06497 X-Ray Foot Complete Completed 04/11/2020 33857 Manual Therapy Each 15 Minutes C ompleted 04/11/2020 82478 Therapeutic Procedure, Each 15 M inutes Completed 04/09/2020 70327 Therapeutic Procedure, Each 15 M inutes Completed 04/05/2020 18782 Therapeutic Procedure, Each 15 M inutes Completed 04/02/2020 79874 Therapeutic Procedure, Each 15 M inutes Completed 03/29/2020 90135 Physical Therapy Eval - Low Comp lexity Completed 03/26/2020 96549 X-Ray Foot Complete Completed 03/12/2020 85327 X-Ray Foot Complete Completed 02/26/2020 94313 X-Ray Foot Complete Completed 02/01/2020 42979 X-Ray Foot Complete Completed 01/26/2020 63477 Apply Splint Short Leg Completed 01/19/2020 28707 X-Ray Foot Complete Completed 01/19/2020 11281 Apply Splint Short Leg Completed 01/12/2020 08469 Arthrodesis Great Toe MP JT Comp leted 01/12/2020 71688 Arthrodesis Midtarsal/Tarsometat arsal Single Completed 01/12/2020 89357 Arthrodesis Midtarsal/Tarsometat arsal Single Completed 01/12/2020 40064 Remove Bone For Graft Minor/Smal l Completed 01/12/2020 Remove Bone For Graft Minor/Smal l Completed Medical Devices Description No Information Available Encounters Type Date Location Provider Dx Diagnosis Office Visit 03/26/2020 10:00a Ashley Malik MD Z47. 89 Encounter for other orthopedic aftercare Z98.1 Arthrodesis status Assessments Date Code Description Provider 04/19/2020 Z47.89 Encounter for other orthopedic a ftercare Dino Bah PT, DPT 04/19/2020 Z98.1 Arthrodesis status Dino cesar, PT, DPT 04/16/2020 Z47.89 Encounter for other orthopedic a ftercare Becky Scee P.T.A. 04/16/2020 Z47.89 Encounter for other orthopedic a ftercare Nallely Malik MD 04/16/2020 Z98.1 Arthrodesis status Becky Scee P.T.A. 04/16/2020 Z98.1 Arthrodesis status Nallely hdez MD 04/11/2020 Z47.89 Encounter for other orthopedic a ftercare Becky Scee P.T.A. 04/11/2020 Z98.1 Arthrodesis status Becky Scee P.T.A. 04/09/2020 Z47.89 Encounter for other orthopedic a ftercare Danamarie Ortolano, TRIM INSTALLER 04/09/2020 Z98.1 Arthrodesis status Danamarie Ort toni, TRIM INSTALLER 04/05/2020 Z47.89 Encounter for other orthopedic a ftercare Becky Scee P.T.A. 04/05/2020 Z98.1 Arthrodesis status Becky Scee P.T.A. 04/02/2020 Z47.89 Encounter for other orthopedic a ftercare Becky Scee P.T.A. 04/02/2020 Z98.1 Arthrodesis status Becky Scee P.T.A. 03/29/2020 Z47.89 Encounter for other orthopedic a ftercare Dino Bah, PT, DPT 03/29/2020 Z98.1 Arthrodesis status Dino cesar, PT, DPT 03/26/2020 Z47.89 Encounter for other orthopedic a ftercare Nallely Malik MD 03/26/2020 Z98.1 Arthrodesis status Nallely hdez MD 03/12/2020 Z47.89 Encounter for other orthopedic a ftercare Nallely Malik MD 03/12/2020 Z98.1 Arthrodesis status Nallely hdez MD 02/26/2020 Z47.89 Encounter for other orthopedic a ftrakanare Nallely Malik MD 02/26/2020 Z98.1 Arthrodesis status Nallely hdez MD 02/01/2020 Z47.89 Encounter for other orthopedic a ftrakanare Nallely Malik MD 02/01/2020 Z98.1 Arthrodesis status Nallely hdez MD 01/26/2020 Z47.89 Encounter for other orthopedic a ftercare Pieter Millard PA-C 01/26/2020 Z47.89 Encounter for other orthopedic a ftercare Pieter Millard PA-C 01/26/2020 Z98.1 Arthrodesis status Pieter deal PA-C 01/26/2020 Z47.89 Encounter for other orthopedic a ftraknaare Nallely Malik MD 01/26/2020 Z98.1 Arthrodesis status Nallely hdez MD 01/26/2020 Z98.1 Arthrodesis status Pieter deal PA-C 01/19/2020 Z47.89 Encounter for other orthopedic a ftrakanare Nallely Malik MD 01/19/2020 Z98.1 Arthrodesis status Nallely hdez MD 01/12/2020 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 Pieter Millard PA-C 01/12/2020 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 at Physical Therapy * 04/30/2020 3:00 pm - Dino Bah, PT, DPT at Physical Therapy * 04/26/2020 2:30 pm - Becky Scee P.T.A. at Physical Therapy * 04/24/2020 1:30 pm - Nelly Olvera PTA at Physical Therapy 04/16/2020 - Nallely Malik MD* Z47.89 Encounter for other orthopedic aftercare * Z98.1 Arthrodesis status* Follow up:* f/u in 6 weeks with BMS with Xrays right foot wb Functional Status Description No Information Available Mental Status Description No Information Available Referrals Refer to Dr Reason for Referral Status Appt Date eFrnando Talbot MD PT BASED ON MED. [facility] TO PT DEPT. NT Created [address] [place] [address], [place] [address] [phone] Fernando Talbot MD SURGERY NO AUTH REQUIRED FO R RT FOOT SURGERY ([id number], [id number],) TO SURGERY NT Created [address] [place] [address] [phone]
--- OUTSIDE RECORDS SUMMARY | 2020-04-26 02:13 | CCD | Continuity of Care Document ---
Author Author Stefano MALIK MD Organization Unknown Address [address] [address] Phone [phone] Care Team Providers Care Cocktail Server Name Role Phone Phoebe Mami Ageee [facility] AUTM Hugh Silverman MD AUT Unavailable [...] minutes Unknown Allopurinol 300mg Tablets Mami Heart [facility] Enalapril Maleate 20mg Tablets Mami Heart, [facility] Hydrochlorothiazide 25mg Tablets Mami Grady, [facility] Chlorhexidine Gluconate 0.12% Solution Unknown Prednisone 20mg Tablets Portia rCuz PA Fluoxetine HCL 20mg Capsules Mami Heart [facility] Cefdinir 300mg Capsules Page Junior PA Immunizations Description No Information Available Vital Signs Date Vital Result Comment 02/26/2020 11:00am Body Temperature 96.2 F 01/19/2020 3:18pm Body Temperature 96.0 F Results Test Acquired Date Facility Test Result H/L Range Note Order 11/15/2019 [facility] nter Surgery <pending> Procedures Date Code Description Status 04/16/2020 51339 Manual Therapy Each 15 Minutes C ompleted 04/16/2020 81036 Therapeutic Procedure, Each 15 M inutes Completed 04/16/2020 24333 X-Ray Foot Complete Completed 04/11/2020 80135 Manual Therapy Each 15 Minutes C ompleted 04/11/2020 23020 Therapeutic Procedure, Each 15 M inutes Completed 04/09/2020 09325 Therapeutic Procedure, Each 15 M inutes Completed 04/05/2020 11280 Therapeutic Procedure, Each 15 M inutes Completed 04/02/2020 67110 Therapeutic Procedure, Each 15 M inutes Completed 03/29/2020 91895 Physical Therapy Eval - Low Comp lexity Completed 03/26/2020 68373 X-Ray Foot Complete Completed 03/12/2020 63200 X-Ray Foot Complete Completed 02/26/2020 74486 X-Ray Foot Complete Completed 02/01/2020 48942 X-Ray Foot Complete Completed 01/26/2020 70746 Apply Splint Short Leg Completed 01/19/2020 19272 X-Ray Foot Complete Completed 01/19/2020 62186 Apply Splint Short Leg Completed 01/12/2020 20412 Arthrodesis Great Toe MP JT Comp leted 01/12/2020 95537 Arthrodesis Midtarsal/Tarsometat arsal Single Completed 01/12/2020 31754 Arthrodesis Midtarsal/Tarsometat arsal Single Completed 01/12/2020 60553 Remove Bone For Graft Minor/Smal l Completed 01/12/2020 47215 Remove Bone For Graft Minor/Smal l Completed Medical Devices Description No Information Available Encounters Type Date Location Provider Dx Diagnosis Office Visit 03/26/2020 10:00a Ashley Malik MD Z47. 89 Encounter for other orthopedic aftercare Z98.1 Arthrodesis status Assessments Date Code Description Provider 04/16/2020 Z98.1 Arthrodesis status Becky Scee P.T.A. 04/16/2020 Z98.1 Arthrodesis status Nallely hdez MD 04/16/2020 Z47.89 Encounter for other orthopedic a ftercare Becky Scee P.T.A. 04/16/2020 Z47.89 Encounter for other orthopedic a ftercare Nallely Malik MD 04/11/2020 Z98.1 Arthrodesis status Becky Scee P.T.A. 04/11/2020 Z47.89 Encounter for other orthopedic a ftercare Becky Scee P.T.A. 04/09/2020 Z98.1 Arthrodesis status Danamarie Ort toni, SEXUAL ASSAULT SOCIAL WORKER 04/09/2020 Z47.89 Encounter for other orthopedic a ftercare Dandianerie Ortolano, SEXUAL ASSAULT SOCIAL WORKER 04/05/2020 Z98.1 Arthrodesis status Becky Scee P.T.A. [...] 02/26/2020 Z47.89 Encounter for other orthopedic a ftercare Nallely Malik MD 02/26/2020 Z98.1 Arthrodesis status Nallely hdez MD 02/01/2020 Z47.89 Encounter for other orthopedic a ftercare Nallely Malik MD 02/01/2020 Z98.1 Arthrodesis status Nallely hdez MD 01/26/2020 Z47.89 Encounter for other orthopedic a ftercare Pieter Millard PA-C 01/26/2020 Z47.89 Encounter for other orthopedic a ftercare Pieter Millard PA-C 01/26/2020 Z98.1 Arthrodesis status Pieter deal PA-C 01/26/2020 Z47.89 Encounter for other orthopedic a ftrakanare Nallely Mlaik MD 01/26/2020 Z98.1 Arthrodesis status Nallely hdez MD 01/26/2020 Z98.1 Arthrodesis status Pieter deal PA-C 01/19/2020 Z47.89 Encounter for other orthopedic a ftercare Nallely Malik MD 01/19/2020 Z98.1 Arthrodesis status [...] Malik MD Plan of Treatment Future Appointment(s):* 04/19/2020 11:30 am - Dino Bah, PT, DPT at Physical Therapy Functional Status Description No Information Available Mental Status Description No Information Available Referrals Refer to Dr Reason for Referral Status Appt Date Fernando Talbot MD PT BASED ON MED. [facility] TO PT DEPT. NT Created [address] [place] [address], [place] [address] [phone] Fernando Talbot MD SURGERY NO AUTH REQUIRED FO R RT FOOT SURGERY ([id number], [id number],) TO SURGERY NT Created [address] [place] [address], [place] [address] [phone]
--- OUTSIDE RECORDS SUMMARY | 2020-04-26 02:14 | CCD | Continuity of Care Document ---
Author Author Stefano MALIK MD Organization Unknown Address [facility] [address] Phone [phone] Care Team Providers Care Crab Butcher Name Role Phone SandhuMami [facility] AUTM [phone] Hugh Silverman MD AUT Unavailable Problems Active [...] minutes Unknown Allopurinol 300mg Tablets Mami Heart [facility] Enalapril Maleate 20mg Tablets Mami Heart, [facility] Hydrochlorothiazide 25mg Tablets Mami Grady, [facility] Chlorhexidine Gluconate 0.12% Solution Unknown Prednisone 20mg Tablets Portia Cruz PA Fluoxetine HCL 20mg Capsules Mami Heart [facility] Cefdinir 300mg Capsules Ring, Page K, PA Immunizations Description No Information Available Vital Signs Date Vital Result Comment 02/26/2020 11:00am Body Temperature 96.2 F 01/19/2020 3:18pm Body Temperature 96.0 F Results Test Acquired Date Facility Test Result H/L Range Note Order 11/15/2019 [facility] nter Surgery <pending> Procedures Date Code Description Status 03/12/2020 72677 X-Ray Foot Complete Completed 02/26/2020 51266 X-Ray Foot Complete Completed 02/01/2020 34301 X-Ray Foot Complete Completed 01/26/2020 49181 Apply Splint Short Leg Completed 01/19/2020 18835 X-Ray Foot Complete Completed 01/19/2020 72665 Apply Splint Short Leg Completed 01/12/2020 18652 Arthrodesis Great Toe MP JT Comp leted 01/12/2020 47622 Arthrodesis Midtarsal/Tarsometat arsal Single Completed 01/12/2020 08467 Arthrodesis Midtarsal/Tarsometat arsal Single Completed 01/12/2020 85991 Remove Bone For Graft Minor/Smal l Completed 01/12/2020 52559 Remove Bone For Graft Minor/Smal l Completed 09/18/2019 73231 X-Ray Foot Complete Completed 09/18/2019 44204 X-Ray Ankle Complete Completed Medical Devices Description No Information Available Encounters Description No Information Available Assessments Date Code Description Provider 03/12/2020 Z47.89 Encounter for other orthopedic a ftercare Nallely Malik MD 02/26/2020 Z47.89 Encounter for other orthopedic [...] other orthopedic a ftercare Nallely Malik MD 01/26/2020 Z98.1 Arthrodesis status Nallely hdez MD 01/26/2020 Z98.1 Arthrodesis status Pieter deal PA-C 01/19/2020 Z47.89 Encounter for other orthopedic a ftgema Malik MD 01/19/2020 Z98.1 Arthrodesis status Nallely [...] foot Nallely Malik MD 01/11/2020 Q78.0 Osteogenesis imperfecttrang Malik MD 11/10/2019 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 Nallely Malik MD 11/10/2019 Q78.0 Osteogenesis imperfecta Nallely Malik MD 09/18/2019 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 Nallely Malik MD 09/18/2019 Q78.0 Osteogenesis imperfecta Nallely Malik MD Plan of Treatment 03/12/2020 - Nallely Malik MD* Z47.89 Encounter for other orthopedic aftercare* Follow up:* aporxx 2 weeks with NMN for rt foot re-check Functional Status Description No Information Available Mental Status Description No Information Available Referrals Refer to Reason for Referral Status Appt Date Fernando Talbot MD SURGERY NO AUTH REQUIRED FO R RT FOOT SURGERY ([id number], [id number],) TO SURGERY NT Created [address] [facility], [address] [place] [address] [phone]
--- OUTSIDE RECORDS SUMMARY | 2020-04-26 02:14 | CCD | Continuity of Care Document ---
Author Author Stefano MALIK MD Organization Unknown Address [address] [address] Phone [phone] Care Team Providers Care Deputy Chief Counsel Name Role Phone Phoebe Mami Ageee [facility] AUTM Hugh Silverman MD AUT Unavailable [...] minutes Unknown Allopurinol 300mg Tablets Mami Heart [facility] Enalapril Maleate 20mg Tablets Mami Heart, [facility] Hydrochlorothiazide 25mg Tablets Mami Grady, [facility] Chlorhexidine Gluconate 0.12% Solution Unknown Prednisone 20mg Tablets Portia Cruz PA Fluoxetine HCL 20mg Capsules Mami Heart [facility] Cefdinir 300mg Capsules Page Junior PA Immunizations Description No Information Available Vital Signs Date Vital Result Comment 02/26/2020 11:00am Body Temperature 96.2 F 01/19/2020 3:18pm Body Temperature 96.0 F Results Test Acquired Date Facility Test Result H/L Range Note Order 11/15/2019 [facility] nter Surgery <pending> Procedures Date Code Description Status 03/29/2020 78133 Physical Therapy Eval - Low Comp lexity Completed 03/26/2020 85675 X-Ray Foot Complete Completed 03/12/2020 56494 X-Ray Foot Complete Completed 02/26/2020 13610 X-Ray Foot Complete Completed 02/01/2020 80272 X-Ray Foot Complete Completed 01/26/2020 17931 Apply Splint Short Leg Completed 01/19/2020 08569 X-Ray Foot Complete Completed 01/19/2020 84689 Apply Splint Short Leg Completed 01/12/2020 41644 Arthrodesis Great Toe MP JT Comp leted 01/12/2020 39823 Arthrodesis Midtarsal/Tarsometat arsal Single Completed 01/12/2020 97984 Arthrodesis Midtarsal/Tarsometat arsal Single Completed 01/12/2020 03048 Remove Bone For Graft Minor/Smal l Completed 01/12/2020 41702 Remove Bone For Graft Minor/Smal l Completed Medical Devices Description No Information Available Encounters Type Date Location Provider Dx Diagnosis Office Visit 03/26/2020 10:00a [place] Mal[place] MD Z47. 89 Encounter for other orthopedic aftercare Z98.1 Arthrodesis status Assessments Date Code Description Provider 03/29/2020 Z98.1 Arthrodesis status Dino cesar, PT, DPT 03/29/2020 Z47.89 Encounter for other orthopedic a ftercare Dino Bah PT, DPT 03/26/2020 Z47.89 Encounter for other orthopedic a ftrakanare Nallely Malik MD 03/26/2020 Z98.1 Arthrodesis status Nallely hdez MD 03/12/2020 Z47.89 Encounter for other orthopedic a ftercare Nallely Malik MD 03/12/2020 Z98.1 Arthrodesis status Nallely hdez MD 02/26/2020 Z47.89 Encounter for other orthopedic a ftrakanare Nallely Malik MD 02/26/2020 Z98.1 Arthrodesis status Nallely hdez MD 02/01/2020 Z47.89 Encounter for other orthopedic a elizabethare Nallely Malik MD 02/01/2020 Z98.1 Arthrodesis status Nallely hdez MD 01/26/2020 Z47.89 Encounter for other orthopedic a ftercare Pieter Millard PA-C 01/26/2020 Z47.89 Encounter for other orthopedic a ftercare Pieter Millard PA-C 01/26/2020 Z98.1 Arthrodesis status Pieter deal PA-C 01/26/2020 Z47.89 Encounter for other orthopedic a ftrakanare Nallely Malik MD 01/26/2020 Z98.1 Arthrodesis status [...] Malik MD Plan of Treatment Future Appointment(s):* 04/05/2020 11:30 am - Becky Steen P.T.A. at Physical Therapy * 04/02/2020 11:30 am - Becky Steen P.T.AWaldemar at Physical Therapy * 04/16/2020 10:30 am - Nallely Malik MD at [place] Functional Status Description No Information Available Mental Status Description No Information Available Referrals Refer to Dr Reason for Referral Status Appt Date Fernando Talbot MD PT BASED ON MED. [facility] TO PT DEPT. NT Created [address] [place] [address], [place] [address] [phone] Fernando Talbot MD SURGERY NO AUTH REQUIRED FO R RT FOOT SURGERY ([id number], [id number],) TO SURGERY NT Created [address] [place] [address], [place] [address] [phone]
--- OUTSIDE RECORDS SUMMARY | 2020-04-26 02:14 | CCD | Continuity of Care Document ---
Author Author Stefano MALIK MD Organization Unknown Address [address] [address] Phone [phone] Care Team Providers Care Territory Account Representative Name Role Phone Phoebe Mami Ageee [facility] AUTM Hugh Silverman MD AUT Unavailable [...] minutes Unknown Allopurinol 300mg Tablets Mami Heart [facility] Enalapril Maleate 20mg Tablets Mami Heart, [facility] Hydrochlorothiazide 25mg Tablets Mami Grady, [facility] Chlorhexidine Gluconate 0.12% Solution Unknown Prednisone 20mg Tablets Portia Cruz PA Fluoxetine HCL 20mg Capsules Mami Heart [facility] Cefdinir 300mg Capsules Page Junior PA Immunizations Description No Information Available Vital Signs Date Vital Result Comment 02/26/2020 11:00am Body Temperature 96.2 F 01/19/2020 3:18pm Body Temperature 96.0 F Results Test Acquired Date Facility Test Result H/L Range Note Order 11/15/2019 [facility] nter Surgery <pending> Procedures Date Code Description Status 03/26/2020 21289 X-Ray Foot Complete Completed 03/12/2020 40749 X-Ray Foot Complete Completed 02/26/2020 75906 X-Ray Foot Complete Completed 02/01/2020 52390 X-Ray Foot Complete Completed 01/26/2020 79940 Apply Splint Short Leg Completed 01/19/2020 89486 X-Ray Foot Complete Completed 01/19/2020 92096 Apply Splint Short Leg Completed 01/12/2020 81386 Arthrodesis Great Toe MP JT Comp leted 01/12/2020 53117 Arthrodesis Midtarsal/Tarsometat arsal Single Completed 01/12/2020 20403 Arthrodesis Midtarsal/Tarsometat arsal Single Completed 01/12/2020 05064 Remove Bone For Graft Minor/Smal l Completed 01/12/2020 82777 Remove Bone For Graft Minor/Smal l Completed Medical Devices Description No Information Available Encounters Description No Information Available Assessments Date Code Description Provider 03/26/2020 Z98.1 Arthrodesis status Nallely hdez MD [...] 01/26/2020 Z47.89 Encounter for other orthopedic a thaddeus Malik MD 01/26/2020 Z98.1 Arthrodesis status Nallely hdez MD 01/26/2020 Z98.1 Arthrodesis status Pieter deal PA-C 01/19/2020 Z47.89 Encounter for other orthopedic a thaddeus Malik MD 01/19/2020 Z98.1 Arthrodesis status Nallely [...] imperfecta Nallely Malik MD Plan of Treatment 03/26/2020 - Nallely Malik MD* Z98.1 Arthrodesis status* Follow up:* in the last week of March for right foot recheck with repeat WB xrays of right foot please. Functional Status Description No Information Available Mental Status Description No Information Available Referrals Refer to Reason for Referral Status Appt Date Fernando Talbot MD SURGERY NO AUTH REQUIRED FO R RT FOOT SURGERY ([id number], [id number],) TO SURGERY NT Created [facility], [address] [place] [address] [phone]
--- OUTSIDE RECORDS SUMMARY | 2020-04-26 02:14 | CCD | Continuity of Care Document ---
Author Author Stefano ARMENTA Organization Unknown Address [address] [place] [address] [place] [address] Phone [phone] Care Team Providers Care House Principal Name Role Phone [facility] AUTM [phone] [facility] AUTM [phone] Problems Description No Information Available Social History Type Date Description Comments Sex Unknown ETOH Use Denies alcohol use Tobacco Use Start: Unknown Patient has never smoked Tobacco Use Start: Unknown The Patient Has Never Vaped Smoking Status Reviewed: 07/01/19 The Patient Has Never Vaped Allergies, Adverse Reactions, Alerts Description No Known Drug Allergies Medications Active Medications SIG Qnty Indications Ordering Provide r Date Ondansetron 8mg Tablets Dispers 1 tablet dissolve on tongue every 8 hours as needed for nausea/vomiting 10tabs A08.39 Dutch Moore JR., M.D. 03/05/2020 Escitalopram Oxalate 10mg Tablets every day Unknown Enalapril Maleate 10mg Tablets Unknown Claritin 10mg Tablets qd Unknown Hydrochlorothiazide Unknown Flomax Unknown Citalopram Hydrobromide 40mg Table ts tke one tab daily Unknown Allopurinol 100mg Tablets 1 tab by mouth qd Unknown Enalapril 20mg Tablets take one (1) tab twice (2) times a day Unknown Immunizations Description No Information Available Vital Signs Date Vital Result Comment 03/05/2020 10:12am BP Systolic 150 mmHg BP Diastolic 88 mmHg Heart Rate 78 /min Respiratory Rate 16 /min O2 % BldC Oximetry 99 % Body Temperature 98.7 F Weight 265.00 lb Height 69 inches 5'9" BMI (Body Mass Index) 39.1 kg/m2 Pain Level 0 07/01/2019 1:12pm BP Systolic 144 mmHg BP Diastolic 94 mmHg Heart Rate 92 /min Respiratory Rate 20 /min O2 % BldC Oximetry 97 % Body Temperature 98.0 F Weight 260.00 lb Height 69 inches 5'9" BMI (Body Mass Index) 38.4 kg/m2 Pain Level 8 Results Description No Information Available Procedures Description No Information Available Medical Devices Description No Information Available Encounters Type Date Location Provider Dx Diagnosis Office Visit 03/05/2020 9:45a [facility] Werner Armenta, P .A. A08.39 Other viral enteritis Z20.828 Contact w and exposure to ot h viral communicable diseases Assessments Date Code Description Provider 03/05/2020 A08.39 Other viral enteritis Werner Armenta, PWaldemarA. 03/05/2020 Z20.828 Contact with and (ro spected) exposure to other viral communicable diseases Werner Armenta, PSavita Plan of Treatment No Information Available Functional Status Description No Information Available Mental Status Description No Information Available Referrals Description No Information Available
--- OUTSIDE RECORDS SUMMARY | 2020-04-26 02:14 | CCD | Continuity of Care Document ---
Author Author Stefano MALIK MD Organization Unknown Address [address] [address] Phone [phone] Care Team Providers Care Research Hydrologist Name Role Phone Phoebe Mami Ageee [facility] AUTM [phone] Hugh Silverman MD AUT Unavailable Problems [...] minutes Unknown Allopurinol 300mg Tablets Mami Heart [facility] Enalapril Maleate 20mg Tablets Mami Heart, [facility] Hydrochlorothiazide 25mg Tablets Mami Grady, [facility] Chlorhexidine Gluconate 0.12% Solution Unknown Prednisone 20mg Tablets Portia Cruz PA Fluoxetine HCL 20mg Capsules Mami Heart [facility] Cefdinir 300mg Capsules Page Junior PA Immunizations Description No Information Available Vital Signs Date Vital Result Comment 02/26/2020 11:00am Body Temperature 96.2 F 01/19/2020 3:18pm Body Temperature 96.0 F Results Test Acquired Date Facility Test Result H/L Range Note Order 11/15/2019 [facility] nter Surgery <pending> Procedures Date Code Description Status 03/12/2020 88212 X-Ray Foot Complete Completed 02/26/2020 56076 X-Ray Foot Complete Completed 02/01/2020 50486 X-Ray Foot Complete Completed 01/26/2020 53289 Apply Splint Short Leg Completed 01/19/2020 86058 X-Ray Foot Complete Completed 01/19/2020 68505 Apply Splint Short Leg Completed 01/12/2020 31051 Arthrodesis Great Toe MP JT Comp leted 01/12/2020 13317 Arthrodesis Midtarsal/Tarsometat arsal Single Completed 01/12/2020 04413 Arthrodesis Midtarsal/Tarsometat arsal Single Completed 01/12/2020 77731 Remove Bone For Graft Minor/Smal l Completed 01/12/2020 56793 Remove Bone For Graft Minor/Smal l Completed [...] 01/26/2020 Z47.89 Encounter for other orthopedic a ftgema Malik MD 01/26/2020 Z98.1 Arthrodesis status Nallely [...] Malik MD Plan of Treatment Future Appointment(s):* 03/26/2020 10:00 am - Nallely Malik MD at [place] 03/12/2020 - Nallely Malik MD* Z47.89 Encounter for other orthopedic aftercare* Follow up:* aporxx 2 weeks with NMN for rt foot re-check * Z98.1 Arthrodesis status Functional Status Description No Information Available Mental Status Description No Information Available Referrals Refer to Dr Reason for Referral Status Appt Date Fernando Talbot MD SURGERY NO AUTH REQUIRED FO R RT FOOT SURGERY ([id number] [id number],) TO SURGERY NT Created [facility], [address] [place] [id number] [phone]
--- OUTSIDE RECORDS SUMMARY | 2020-04-26 02:14 | CCD | Continuity of Care Document ---
Author Author Stefano PATEL DPT Organization Unknown Address [address] [address] Phone [phone] Care Team Providers Care Sulky Driver Name Role Phone SandhuMami [facility] AUTM [phone] Hugh Silverman MD Unavailable Problems Active Problems [...] minutes Unknown Allopurinol 300mg Tablets Mami Heart, [facility] Enalapril Maleate 20mg Tablets Mami Heart, [facility] Hydrochlorothiazide 25mg Tablets Mami Grady, [facility] Chlorhexidine Gluconate 0.12% Solution Unknown Prednisone 20mg Tablets Portia Cruz PA Fluoxetine HCL 20mg Capsules Mami Heart, [facility] Cefdinir 300mg Capsules Page Junior PA Immunizations Description No Information Available Vital Signs Date Vital Result Comment 02/26/2020 11:00am Body Temperature 96.2 F 01/19/2020 3:18pm Body Temperature 96.0 F Results Test Acquired Date Facility Test Result H/L Range Note Order 11/15/2019 [facility] nter Surgery <pending> Procedures Date Code Description Status 03/26/2020 44617 X-Ray Foot Complete Completed 03/12/2020 77166 X-Ray Foot Complete Completed 02/26/2020 98192 X-Ray Foot Complete Completed 02/01/2020 84946 X-Ray Foot Complete Completed 01/26/2020 64390 Apply Splint Short Leg Completed 01/19/2020 37918 X-Ray Foot Complete Completed 01/19/2020 32288 Apply Splint Short Leg Completed 01/12/2020 18242 Arthrodesis Great Toe MP JT Comp leted 01/12/2020 64012 Arthrodesis Midtarsal/Tarsometat arsal Single Completed 01/12/2020 57101 Arthrodesis Midtarsal/Tarsometat arsal Single Completed 01/12/2020 53856 Remove Bone For Graft Minor/Smal l Completed 01/12/2020 02259 Remove Bone For Graft Minor/Smal l Completed Medical Devices Description No Information Available Encounters Type Date Location Provider Dx Diagnosis Office Visit 03/26/2020 10:00a Erinarsenio Buitrago MD Z98. 1 Arthrodesis status Assessments Date Code Description Provider 03/26/2020 Z98.1 Arthrodesis status Nallely hdez MD 03/12/2020 Z47.89 Encounter for other orthopedic a ftrakanare Nallely Buitrago MD 03/12/2020 Z98.1 Arthrodesis status Nallely hdez MD 02/26/2020 Z47.89 Encounter for other orthopedic a ftrakanare Nallely Buitrago MD 02/26/2020 Z98.1 Arthrodesis status Nallely hdez MD 02/01/2020 Z47.89 Encounter for other orthopedic a thaddeus Buitrago MD 02/01/2020 Z98.1 Arthrodesis status Nallely [...] Buitrago MD Plan of Treatment Future Appointment(s):* 04/05/2020 11:30 am - [facility] * 04/02/2020 11:30 am - Becky [facility] * 04/16/2020 10:30 am - Nallely Buitrago MD at [place] Functional Status Description No Information Available Mental Status Description No Information Available Referrals Refer to Reason for Referral Status Appt Date Feranndo Talbot MD PT BASED ON MED. [facility] TO PT DEPT. NT Created [address] [place] [address], [place] [address] [phone] Fernando Talbot MD SURGERY NO AUTH REQUIRED FO R RT FOOT SURGERY ([id number], [id number],) TO SURGERY NT Created [address] [place] [address], [place] [address] [phone]
--- OUTSIDE RECORDS SUMMARY | 2020-04-26 02:15 | CCD ---
Continuity of Care Document (CCD) Created on: 03/04/2020 Stefano Lyman External Reference #: [id number] : 1985 Sex: Male Author Author Stefano MALIK MD Organization Unknown Address [facility] [address] Phone [phone] Care Team Providers Care Manager Shipping Name Role Phone SandhuMami [facility] AUTM [phone] Hugh Silverman MD AUT Unavailable Problems Active [...] Unknown Allopurinol 300mg Tablets Mami Heart [facility] Enalapril Maleate 20mg Tablets Mami Heart, [facility] Hydrochlorothiazide 25mg Tablets Mami Grady, [facility] Chlorhexidine Gluconate 0.12% Solution Unknown Prednisone 20mg Tablets Portia Cruz PA Fluoxetine HCL 20mg Capsules Mami Heart [facility] Cefdinir 300mg Capsules Ring, Page K, PA Immunizations Description No Information Available Vital Signs Date Vital Result Comment 02/26/2020 11:00am Body Temperature 96.2 F 01/19/2020 3:18pm Body Temperature 96.0 F Results Test Acquired Date Facility Test Result H/L Range Note Order 11/15/2019 [facility] nter Surgery <pending> Procedures Date Code Description Status 02/26/2020 81542 X-Ray Foot Complete Completed 02/01/2020 46407 X-Ray Foot Complete Completed 01/26/2020 87283 Apply Splint Short Leg Completed 01/19/2020 79705 X-Ray Foot Complete Completed 01/19/2020 25117 Apply Splint Short Leg Completed 01/12/2020 48826 Arthrodesis Great Toe MP JT Comp leted 01/12/2020 01427 Arthrodesis Midtarsal/Tarsometat arsal Single Completed 01/12/2020 60330 Arthrodesis Midtarsal/Tarsometat arsal Single Completed 01/12/2020 15424 Remove Bone For Graft Minor/Smal l Completed 01/12/2020 40551 Remove Bone For Graft Minor/Smal l Completed 09/18/2019 00871 X-Ray Foot Complete Completed 09/18/2019 53036 X-Ray Ankle Complete Completed Medical Devices Description No Information Available Encounters Type Date Location Provider Dx Diagnosis Office Visit 09/05/2019 8:30a Ashley Becker MD S8 3.014D Lateral dislocation of right patella, subsequent encounter Assessments Date Code Description Provider 02/26/2020 Z47.89 Encounter for other orthopedic a [...] 09/18/2019 Q78.0 Osteogenesis imperfecta Nallely Malik MD 09/05/2019 S83.014D Lateral dislocation of right pat christal, subsequent encounter Saniya Becker MD Plan of Treatment Future Appointment(s):* 03/12/2020 10:15 am - Nallely Malik MD at [place] 02/26/2020 - Nallely Malik MD* Z47.89 Encounter for other orthopedic aftercare* Follow up:* 2 weeks right foot recheck with right foot wb xrays with NMN * Z98.1 Arthrodesis status Functional Status Description No Information Available Mental Status Description No Information Available Referrals Refer to Reason for Referral Status Appt Date Fernando Talbot MD SURGERY NO AUTH REQUIRED FO R RT FOOT SURGERY ([id number], [id number],) TO SURGERY NT Created [address], [address] [place] [address] [phone]
--- OUTSIDE RECORDS SUMMARY | 2020-04-26 02:15 | CCD | Continuity of Care Document ---
Author Author Stefano ARMENTA Organization Unknown Address [address] [place] [address] [place] [address] Phone [phone] Care Team Providers Care Software Engineering Manager Name Role Phone [facility] AUTM [phone] [facility] AUTM [phone] Problems Description No Information Available Social History [...]
--- OUTSIDE RECORDS SUMMARY | 2020-04-26 02:15 | CCD | Continuity of Care Document ---
Author Author Stefano MALIK MD Organization Unknown Address [facility] [address] Phone [phone] Care Team Providers Care Feltmaker And Weigher Name Role Phone SandhuMami [facility] AUTM [phone] Hugh Silverman MD AUT Unavailable Problems Active [...] [facility] Hydrochlorothiazide 25mg Tablets Mami Grady [facility] Chlorhexidine Gluconate 0.12% Solution [...] Test Result H/L Range Note Order 11/15/2019 [facility] nter Surgery <pending> Procedures Date Code Description Status 02/26/2020 68267 X-Ray Foot Complete Completed 02/01/2020 28803 X-Ray Foot Complete Completed 01/26/2020 41216 Apply Splint Short Leg Completed 01/19/2020 08473 X-Ray Foot Complete Completed 01/19/2020 44141 Apply Splint Short Leg Completed 01/12/2020 57001 Arthrodesis Great Toe MP JT Comp leted 01/12/2020 55365 Arthrodesis Midtarsal/Tarsometat arsal Single Completed 01/12/2020 69707 Arthrodesis Midtarsal/Tarsometat arsal Single Completed 01/12/2020 48094 Remove Bone For Graft Minor/Smal l Completed 01/12/2020 67041 Remove Bone For Graft Minor/Smal l Completed 09/18/2019 22704 X-Ray Foot Complete Completed 09/18/2019 27444 X-Ray Ankle Complete Completed Medical Devices Description [...] 10:15 am - Nallely Malik MD at [place] 02/26/2020 - Nallely Malik MD* Z47.89 Encounter for other orthopedic aftercare* Follow up:* 2 weeks right foot recheck with right foot wb xrays with NMN * Z98.1 Arthrodesis status Functional Status Description No Information Available Mental Status Description No Information Available Referrals Refer to Reason for Referral Status Appt Date Fernando Talbot MD SURGERY NO AUTH REQUIRED FO R RT FOOT SURGERY ([id number],) TO SURGERY NT Created [address] [facility], [address] [place] [address] [phone]
--- OUTSIDE RECORDS SUMMARY | 2020-04-26 02:15 | CCD ---
Author Author [facility] Organization [facility] Address Unknown Phone Unavailable Care Team Providers Care Gunner'S Mate M Name Role Phone NALLELY MALIK MD Unavailable Unavailable NALLELY MALIK MD Unavailable Unavailable NALLELY MALIK MD Unavailable Unavailable NALLELY MALIK MD Unavailable Unavailable NALLELY MALIK MD Unavailable Unavailable NALLELY MALIK MD Unavailable Unavailable NALLELY MALIK MD Unavailable Unavailable NALLELY MALIK MD Unavailable Unavailable NALLELY MALIK MD Unavailable Unavailable NALLELY MALIK MD Unavailable Unavailable NALLELY MALIK MD Unavailable Unavailable NALLELY MALIK MD Unavailable Unavailable NALLELY MALIK MD Unavailable Unavailable NALLELY MALIK MD Unavailable Unavailable NALLELY MALIK MD Unavailable Unavailable NALLELY MALIK MD Unavailable Unavailable NALLELY MALIK MD Unavailable Unavailable NALLELY MALIK MD Unavailable Unavailable NALLELY MALIK MD Unavailable Unavailable NALLELY MALIK MD Unavailable Unavailable NALLELY MALIK MD Unavailable Unavailable NALLELY MALIK MD Unavailable Unavailable NALLELY MALIK MD Unavailable Unavailable NALLELY MALIK MD Unavailable Unavailable NALLELY MALIK MD Unavailable Unavailable NALLELY MALIK MD Unavailable Unavailable NALLELY MALIK MD Unavailable Unavailable NALLELY MALIK MD Unavailable Unavailable NALLELY MALIK MD Unavailable Unavailable NALLELY MALIK MD Unavailable Unavailable DEVLIN, KIMBERLY Unavailable Unavailable DEVLIN, KIMBERLY Unavailable Unavailable DEVLIN, KIMBERLY Unavailable Unavailable DEVLIN, KIMBERLY Unavailable Unavailable DEVLIN, KIMBERLY Unavailable Unavailable DEVLIN, KIMBERLY Unavailable Unavailable DEVLIN, KIMBERLY Unavailable Unavailable DEVLIN, KIMBERLY Unavailable Unavailable DEVLIN, KIMBERLY Unavailable Unavailable DEVLIN, KIMBERLY Unavailable Unavailable DEVLIN, KIMBERLY Unavailable Unavailable DEVLIN, KIMBERLY Unavailable Unavailable DEVLIN, KIMBERLY Unavailable Unavailable DEVLIN, KIMBERLY Unavailable Unavailable DEVLIN, KIMBERLY Unavailable Unavailable DEVLIN, KIMBERLY Unavailable Unavailable DEVLIN, KIMBERLY Unavailable Unavailable DEVLIN, KIMBERLY Unavailable Unavailable DEVLIN, KIMBERLY Unavailable Unavailable DEVLIN, KIMBERLY Unavailable Unavailable DEVLIN, KIMBERLY Unavailable Unavailable DEVLIN, KIMBERLY Unavailable Unavailable DEVLIN, KIMBERLY Unavailable Unavailable DEVLIN, KIMBERLY Unavailable Unavailable DEVLIN, KIMBERLY Unavailable Unavailable RING, K PRICILLA PA Unavailable Unavailable RING, K PRICILLA PA Unavailable Unavailable RING, K PRICILLA PA Unavailable Unavailable RING, K PRICILLA PA Unavailable Unavailable RING, K PRICILLA PA Unavailable Unavailable RING, K PRICILLA PA Unavailable Unavailable RING, K PRICILLA PA Unavailable Unavailable RING, K PRICILLA PA Unavailable Unavailable RING, K PRICILLA PA Unavailable Unavailable RING, K PRICILLA PA Unavailable Unavailable RING, K PRICILLA PA Unavailable Unavailable RING, K PRICILLA PA Unavailable Unavailable RING, K PRICILLA PA Unavailable Unavailable RING, K PRICILLA PA Unavailable Unavailable RING, K PRICILLA PA Unavailable Unavailable RING, K PRICILLA PA Unavailable Unavailable RING, K PRICILLA PA Unavailable Unavailable RING, K PRICILLA PA Unavailable Unavailable RING, K PRICILLA PA Unavailable Unavailable RING, K PRICILLA PA Unavailable Unavailable RING, K PRICILLA PA Unavailable Unavailable KATHI, MIRTHA PA Unavailable Unavailable KATHI, MIRTHA PA Unavailable Unavailable KATHI, MIRTHA PA Unavailable Unavailable KATHI, MIRTHA PA Unavailable Unavailable KATHI, MIRTHA PA Unavailable Unavailable KATHI, MIRTHA PA Unavailable Unavailable KATHI, MIRTHA PA Unavailable Unavailable KATHI, MIRTHA PA Unavailable Unavailable KATHI, MIRTHA PA Unavailable Unavailable KATHI, MIRTHA PA Unavailable Unavailable KATHI, MIRTHA PA Unavailable Unavailable KATHI, MIRTHA PA Unavailable Unavailable KATHI, MIRTHA PA Unavailable Unavailable KATHI, MIRTHA PA Unavailable Unavailable KATHI, MIRTHA PA Unavailable Unavailable KATHI, MIRTHA PA Unavailable Unavailable KATHI, MIRTHA PA Unavailable Unavailable KATHI, MIRTHA PA Unavailable Unavailable KATHI, MIRTHA PA Unavailable Unavailable KATHI, MIRTHA PA Unavailable Unavailable KATHI, MIRTHA PA Unavailable Unavailable KATHI, MIRTHA PA Unavailable Unavailable KATHI, MIRTHA PA Unavailable Unavailable KATHI, MIRTHA PA Unavailable Unavailable KATHI, MIRTHA PA Unavailable Unavailable KATHI, MIRTHA PA Unavailable Unavailable KATHI, MIRTHA PA Unavailable Unavailable KATHI, MIRTHA PA Unavailable Unavailable KATHI, MIRTHA PA Unavailable Unavailable KATHI, MIRTHA PA Unavailable Unavailable KATHI, MIRTHA PA Unavailable Unavailable KATHI, MIRTHA PA Unavailable Unavailable KATHI, MIRTHA PA Unavailable Unavailable KATHI, MIRTHA PA Unavailable Unavailable KATHI, MIRTHA PA Unavailable Unavailable KATHI, MIRTHA PA Unavailable Unavailable KATHI, MIRTHA PA Unavailable Unavailable KATHI, MIRTHA PA Unavailable Unavailable Vibha Becker MD Unavailable Unavailable Vibha Becker MD Unavailable Unavailable Vibha Becker MD Unavailable Unavailable Vibha Becker MD Unavailable Unavailable Vibha Becker MD Unavailable Unavailable Vibha Becker MD Unavailable Unavailable Vibha Becker MD Unavailable Unavailable Vibha Becker MD Unavailable Unavailable Vibha Becker MD Unavailable Unavailable Vibha Becker MD Unavailable Unavailable Vibha Becker MD Unavailable Unavailable Vibha Becker MD Unavailable Unavailable Vibha Becker MD Unavailable Unavailable Vibha Becker MD Unavailable Unavailable Vibha Becker MD Unavailable Unavailable Vibha Becker MD Unavailable Unavailable Vibha Becker MD Unavailable Unavailable Vibha Becker MD Unavailable Unavailable Vibha Becker MD Unavailable Unavailable Vibha Becker MD Unavailable Unavailable Vibha Becker MD Unavailable Unavailable Vibha Becker MD Unavailable Unavailable Vibha Becker MD Unavailable Unavailable Vibha Becker MD Unavailable Unavailable Vibha Becker MD Unavailable Unavailable Vibha Becker MD Unavailable Unavailable Vibha Becker MD Unavailable Unavailable VanVibha mackay MD Unavailable Unavailable Vibha Becker MD Unavailable Unavailable BennyeenVibha fernández MD Unavailable Unavailable Vibha Becker MD Unavailable Unavailable Vibha Becker MD Unavailable Unavailable Vibha Becker MD Unavailable Unavailable Vibha Becker MD Unavailable Unavailable Vibha Becker MD Unavailable Unavailable Vibha Becker MD Unavailable Unavailable Vibha Becker MD Unavailable Unavailable Vibha Becker MD Unavailable Unavailable VaneenVibha fernández MD Unavailable Unavailable Vibha Becker MD Unavailable Unavailable Vibha Becker MD Unavailable Unavailable DarriusamVibha MD Unavailable Unavailable Cruz, Alyson Portia PA Unavailable Unavailable Cruz, Alyson Portia PA Unavailable Unavailable Cruz, Alyson Portia PA Unavailable Unavailable Cruz, Alyson Portia PA Unavailable Unavailable Crzu, Alyson Portia PA Unavailable Unavailable Cruz, Alyson Portia PA Unavailable Unavailable Cruz, Alyson Portia PA Unavailable Unavailable Cruz, Alyson Portia PA Unavailable Unavailable Cruz, Alyson Portia PA Unavailable Unavailable Cruz, Alyson Portia PA Unavailable Unavailable NALLELY MALIK MD Unavailable Unavailable NALLELY MALIK MD Unavailable Unavailable NALLELY MALIK MD Unavailable Unavailable NALLELY MALIK MD Unavailable Unavailable NALLELY MALIK MD Unavailable Unavailable NALLELY MALIK MD Unavailable Unavailable NALLELY MALIK MD Unavailable Unavailable NALLELY MALIK MD Unavailable Unavailable NALLELY MALIK MD Unavailable Unavailable NALLELY MALIK MD Unavailable Unavailable NALLELY MALIK MD Unavailable Unavailable NALLELY MALIK MD Unavailable Unavailable NALLELY MALIK MD Unavailable Unavailable NALLELY MALIK MD Unavailable Unavailable NALLELY MALIK MD Unavailable Unavailable NALLELY MALIK MD Unavailable Unavailable NALLELY MALIK MD Unavailable Unavailable NALLELY MALIK MD Unavailable Unavailable NALLELY MALIK MD Unavailable Unavailable NALLELY MALIK MD Unavailable Unavailable NALLELY MALIK MD Unavailable Unavailable NALLELY MALIK MD Unavailable Unavailable NALLELY MALIK MD Unavailable Unavailable NALLELY MALIK MD Unavailable Unavailable NALLELY MALIK MD Unavailable Unavailable NALLELY MALIK MD Unavailable Unavailable NALLELY MALIK MD Unavailable Unavailable MALIK, NALLELY MD Unavailable Unavailable NALLELY MALIK MD Unavailable Unavailable NALLELY MALIK MD Unavailable Unavailable Re-disclosure Warning The records that you are about to access may contain information from federally-assisted alcohol or drug abuse programs. If such information is present, then the following federally mandated warning applies: This information has been disclosed to you from records protected by federal confidentiality rules (42 CFR part 2). The federal rules prohibit you from making any further disclosure of this information unless further disclosure is expressly permitted by the written consent of the person to whom it pertains or as otherwise permitted by 42 CFR part 2. A general authorization for the release of medical or other information is NOT sufficient for this purpose. The Federal rules restrict any use of the information to criminally investigate or prosecute any alcohol or drug abuse patient.The records that you are about to access may contain highly sensitive health information, the redisclosure of which is protected by Article 27-F of the [facility] Public Health law. If you continue you may have access to information: Regarding HIV / AIDS; Provided by facilities licensed or operated by the [facility] Office of Mental Health; or Provided by the [facility] Office for People With Developmental Disabilities. If such information is present, then the following [facility] mandated warning applies: This information has been disclosed to you from confidential records which are protected by state law. State law prohibits you from making any further disclosure of this information without the specific written consent of the person to whom it pertains, or as otherwise permitted by law. Any unauthorized further disclosure in violation of state law may result in a fine or shelter sentence or both. A general authorization for the release of medical or other information is NOT sufficient authorization for further disc losure. Family History Family Member Name Family Member Gender Family Member Status Date o f Status Description Data Source(s) Unknown Unknown Problem [facility] ([facility]) father's side Unknown Female Problem MED[facility] ([facility]) Unknown Female Problem [facility] ([facility]) Unknown Unknown Problem [facility] ([facility] Encounters Encounter Providers Location Date Indications Data Source(s ) Office Visit Attender: NALLELY MALIK MD Physical Therapy 09:00:00 AM EST MED[facility] ([facility]) Outpatient Attender: MIRTHA Masona ry 03/05/2020 08:45:00 AM EST [facility] ([facility]) [place] [address] [facility] [place] [address] 12/29/2019 12:00:00 AM EDT [facility] Outpatient Referrer: NALLELY MALIK MD 09/21/2019 09:49:0 0 AM EDT [facility] Outpatient Referrer: KIMBERLY DEVLIN 09/21/2019 09:43:00 A M EDT [facility] Office Visit, Est Pt., Level 4 PC [address] [place] [address] 09/08/2019 12:00:00 AM EDT eCW1 ([facility]) Outpatient Attender: Vibha Becker MD Physical Therap y 09/05/2019 08:30:00 AM EDT [facility] ([facility]) [facility] [address] [place] [id number] 08/31/2019 12:00:00 AM EDT eCW1 ([facility]) [address] [place] [address] 08/21/2019 12:00:00 AM EDT eCW1 [facility]) Outpatient Attender: PRICILLA Barillas Primary 07/01/2019 01:00:00 PM EDT MED[facility] ([facility]) [address] [place] [address] 06/29/2019 12:00:00 AM EDT eCW1 ([facility]) Outpatient Attender: Portia Mason jose 06/28/2019 11:00:00 AM EDT MED[facility] ([facility]) [address] [place] [address] 06/28/2019 12:00:00 AM EDT eCW1 ([facility] [address] [address] 06/22/2019 12:00:00 AM EDT eCW1 ([facility]) Outpatient Attender: PRICILLA Barillas Primary 05/24/2019 08:00:00 AM EST [facility] ([facility]) [facility] [place] [address] [facility] [place] [address] 05/09/2019 12:00:00 AM EST eCW1 ([facility]) Outpatient Attender: PRICILLA Barillas Primary 05/07/2019 08:45:00 AM EST [facility] ([facility]) Outpatient Attender: PRICILLA Barillas Primary 04/17/2019 08:00:00 AM EST MED[facility] ([facility]) [facility] [address] [facility] [address] 02/28/2019 12:00:00 AM EST eCW1 ([facility]) Immunizations Vaccine Date Status Description Data Source(s) influenza, recombinant, quadrIvalent,injectable, prese rvative free 02/28/2019 01:41:00 PM EST completed eCW1 ([facility]) influenza, recombinant, quadrIvalent,injectable, prese rvative free 02/28/2019 01:41:00 PM EST completed eCW1 ([facility]) influenza, recombinant, quadrIvalent,injectable, prese rvative free 02/28/2019 01:41:00 PM EST completed eCW1 ([facility]) Medications Medication Brand Name Start Date Product Form Dose Route Admi nistrative Instructions Pharmacy Instructions Status Indications Reaction Description Data Source(s) 20 mg 04/12/2020 12:00:00 AM EST capsule 180 TAKE TWO CAPSULES BY MOUTH EVERY MORNING TAKE TWO CAPSULES BY MOUTH EVERY MORNING SOLD: 04/13/2020 [facility] Ondansetron 8 MG Disintegrating Oral Tablet Ondansetron 03/05/2020 12:00:00 AM EST active MEDENT ([facility]) 8 mg 03/05/2020 12:00:00 AM EST tablet,disintegrating 1 0 DISSOLVE 1 TABLET ON TONGUE EVERY 8 HOURS NEEDED FOR NAUSEA AND VOMITING DISSOLVE 1 TABLET ON TONGUE EVERY 8 HOURS NEEDED FOR NAUSEA AND VOMITING SOLD: 03/05/2020 [facility] 5 mg 01/15/2020 12:00:00 AM EDT tablet 30 TAKE 1 TO 2 TABLETS BY MOUTH EVERY 4 HOURS NEEDED FOR PAIN MAXIMUM DAILY DOSE = 6 TABLETS TAKE 1 TO 2 TABLETS BY MOUTH EVERY 4 HOURS NEEDED FOR PAIN MAXIMUM DAILY DOSE = 6 TABLETS SOLD: 01/20/2020 [facility] 81 mg 01/13/2020 12:00:00 AM EDT tablet,delayed release (DR/EC) 60 TAKE ONE TABLET BY MOUTH TWICE A DAY NEEDED FOR PAIN TAKE ONE TABLET BY MOUTH TWICE A DAY NEEDED FOR PAIN SOLD: 01/20/2020 [facility] Oxycodone Hydrochloride 5 MG Oral Tablet Oxycodone HCL 01/10/2020 12:00:00 AM EDT ORAL active [facility] ([facility] ) 20 mg 12/30/2019 12:00:00 AM EDT tablet 60 TAKE TWO TABLETS BY MOUTH EVERY DAY TAKE TWO TABLETS BY MOUTH EVERY DAY SOLD: 04/10/2020 [facility] 20 mg 12/30/2019 12:00:00 AM EDT tablet 60 TAKE TWO TABLETS BY MOUTH EVERY DAY TAKE TWO TABLETS BY MOUTH EVERY DAY SOLD: 02/25/2020 [facility] 25 mg 12/30/2019 12:00:00 AM EDT tablet 30 TAKE ONE TABLET BY MOUTH EVERY MORNING TAKE ONE TABLET BY MOUTH EVERY MORNING SOLD: 01/01/2020 [facility] 20 mg 12/30/2019 12:00:00 AM EDT tablet 60 TAKE TWO TABLETS BY MOUTH EVERY DAY TAKE TWO TABLETS BY MOUTH EVERY DAY SOLD: 01/01/2020 [facility] Enalapril Maleate 20 MG Oral Tablet Enalapril Maleate 20 MG 12/29/2019 12:00:00 AM EDT 2.0 {tablet} active Enalapril M aleate 20 MG eCW1 ([facility]) 0.12 % 07/31/2019 12:00:00 AM EDT mouthwash 473 SWISH 15 ML FOR 30 SECONDS AND EXPECTORATE FOUR TIMES A DAY SWISH 15 ML FOR 30 SECONDS AND EXPECTORA TE FOUR TIMES A DAY SOLD: 07/31/2019 [facility] 0.12 % 07/31/2019 12:00:00 AM EDT mouthwash 473 SWISH 15 ML FOR 30 SECONDS AND EXPECTORATE FOUR TIMES A DAY SWISH 15 ML FOR 30 SECONDS AND EXPECTORA TE FOUR TIMES A DAY SOLD: 11/15/2019 [facility] 500 mg 07/31/2019 12:00:00 AM EDT capsule 21 TAKE 1 CAPSULE BY MOUTH EVERY 8 HOURS UNTIL FINISHED TAKE 1 CAPSULE BY MOUTH EVERY 8 HOURS UNTIL FINISHED S OLD: 07/31/2019 [facility] 300 mg 06/29/2019 12:00:00 AM EDT tablet 30 TAKE ONE TABLET BY MOUTH EVERY DAY TAKE ONE TABLET BY MOUTH EVERY DAY SOLD: 03/02/2020 [facility] 300 mg 06/29/2019 12:00:00 AM EDT tablet 30 TAKE ONE TABLET BY MOUTH EVERY DAY TAKE ONE TABLET BY MOUTH EVERY DAY SOLD: 07/23/2019 [facility] 300 mg 06/29/2019 12:00:00 AM EDT tablet 30 TAKE ONE TABLET BY MOUTH EVERY DAY TAKE ONE TABLET BY MOUTH EVERY DAY SOLD: 06/30/2019 [facility] 300 mg 06/29/2019 12:00:00 AM EDT tablet 30 TAKE ONE TABLET BY MOUTH EVERY DAY TAKE ONE TABLET BY MOUTH EVERY DAY SOLD: 12/25/2019 [facility] 300 mg 06/29/2019 12:00:00 AM EDT tablet 30 TAKE ONE TABLET BY MOUTH EVERY DAY TAKE ONE TABLET BY MOUTH EVERY DAY SOLD: 09/15/2019 [facility] 300 mg 06/29/2019 12:00:00 AM EDT tablet 30 TAKE ONE TABLET BY MOUTH EVERY DAY TAKE ONE TABLET BY MOUTH EVERY DAY SOLD: 10/12/2019 [facility] Prednisone 20 MG Oral Tablet Prednisone 06/28/2019 12:00:00 AM EDT active MEDENT ([facility]) 20 mg 06/28/2019 12:00:00 AM EDT tablet 15 TAKE ONE TABLET BY MOUTH THREE TIMES A DAY FOR 5 DAYS TAKE ONE TABLET BY MOUTH THREE TIMES A DAY FOR 5 DAYS SOLD: 06/28/2019 [facility] 20 mg 06/22/2019 12:00:00 AM EDT tablet 60 TAKE TWO TABLETS BY MOUTH EVERY DAY TAKE TWO TABLETS BY MOUTH EVERY DAY SOLD: 10/12/2019 [facility] 20 mg 06/22/2019 12:00:00 AM EDT tablet 60 TAKE TWO TABLETS BY MOUTH EVERY DAY TAKE TWO TABLETS BY MOUTH EVERY DAY SOLD: 06/24/2019 [facility] 20 mg 06/22/2019 12:00:00 AM EDT tablet 60 TAKE TWO TABLETS BY MOUTH EVERY DAY TAKE TWO TABLETS BY MOUTH EVERY DAY SOLD: 07/24/2019 [facility] 20 mg 06/22/2019 12:00:00 AM EDT tablet 60 TAKE TWO TABLETS BY MOUTH EVERY DAY TAKE TWO TABLETS BY MOUTH EVERY DAY SOLD: 11/15/2019 [facility] 20 mg 06/22/2019 12:00:00 AM EDT tablet 60 TAKE TWO TABLETS BY MOUTH EVERY DAY TAKE TWO TABLETS BY MOUTH EVERY DAY SOLD: 09/01/2019 [facility] 20 mg 06/01/2019 12:00:00 AM EDT capsule 180 TAKE TWO CAPSULES BY MOUTH EVERY MORNING TAKE TWO CAPSULES BY MOUTH EVERY MORNING SOLD: 06/05/2019 [facility] 20 mg 06/01/2019 12:00:00 AM EDT capsule 180 TAKE TWO CAPSULES BY MOUTH EVERY MORNING TAKE TWO CAPSULES BY MOUTH EVERY MORNING SOLD: 11/15/2019 [facility] cefdinir 300 MG Oral Capsule Cefdinir 05/24/2019 12:00:00 AM EST ORAL completed MEDENT ([facility]) 300 mg 05/24/2019 12:00:00 AM EST capsule 20 TAKE ONE CAPSULE BY MOUTH EVERY 12 HOURS FOR 10 DAYS TAKE ONE CAPSULE BY MOUTH EVERY 12 HOURS FOR 10 DAYS S OLD: 05/24/2019 [facility] 100 mg 05/10/2019 12:00:00 AM EST tablet 30 TAKE ONE TABLET BY MOUTH EVERY DAY TAKE ONE TABLET BY MOUTH EVERY DAY SOLD: 11/15/2019 [facility] 100 mg 05/10/2019 12:00:00 AM EST tablet 30 TAKE ONE TABLET BY MOUTH EVERY DAY TAKE ONE TABLET BY MOUTH EVERY DAY SOLD: 05/12/2019 [facility] 100 mg 05/10/2019 12:00:00 AM EST tablet 30 TAKE ONE TABLET BY MOUTH EVERY DAY TAKE ONE TABLET BY MOUTH EVERY DAY SOLD: 06/14/2019 [facility] 20 mg 05/07/2019 12:00:00 AM EST tablet 10 TAKE ONE TABLET BY MOUTH TWO TIMES A DAY FOR 5 DAYS TAKE ONE TABLET BY MOUTH TWO TIMES A DAY FOR 5 DAYS SO LD: 05/07/2019 [facility] Prednisone 20 MG Oral Tablet Prednisone 05/07/2019 12:00:00 AM EST ORAL completed [facility]ENT ([facility]) 20 mg 04/17/2019 12:00:00 AM EST tablet 10 TAKE ONE TABLET BY MOUTH TWICE A DAY FOR 5 DAYS TAKE ONE TABLET BY MOUTH TWICE A DAY FOR 5 DAYS SOLD: 2019 [facility] Prednisone 20 MG Oral Tablet Prednisone 04/17/2019 12:00:00 AM EST ORAL completed MEDENT ([facility]) 25 mg 12/30/2018 12:00:00 AM EDT tablet 30 TAKE 1 TABLET BY MOUTH IN THE MORNING TAKE 1 TABLET BY MOUTH IN THE MORNING SOLD: 10/12/2019 [facility] 25 mg 12/30/2018 12:00:00 AM EDT tablet 30 TAKE 1 TABLET BY MOUTH IN THE MORNING TAKE 1 TABLET BY MOUTH IN THE MORNING SOLD: 04/06/2019 [facility] 25 mg 12/30/2018 12:00:00 AM EDT tablet 30 TAKE 1 TABLET BY MOUTH IN THE MORNING TAKE 1 TABLET BY MOUTH IN THE MORNING SOLD: 06/01/2019 [facility] 25 mg 12/30/2018 12:00:00 AM EDT tablet 30 TAKE 1 TABLET BY MOUTH IN THE MORNING TAKE 1 TABLET BY MOUTH IN THE MORNING SOLD: 07/23/2019 [facility] Insurance Providers Payer name Policy type / Coverage type Policy ID Covered alliance party ID Covered alliance party's relationship to bryson Policy Bryson Plan Information EMEDNY [id number] SP [id number] MEDICARE [id number] SP [id number] Y50 EMEDNY [id number] MEDICAID [id number] MEDICARE C [id number] S [id number] MEDICAID [id number] MEDICAID [id number] [facility]-Medicare Part B [id number] [facility]-Medicaid [id number] [facility]-Medicaid [id number] ANSI-Medicare Part B [id number] ANSI-Medicare Part B [id number] ANSI-Medicaid [id number] ANSI-Medicare Part B [id number] ANSI-Medicaid [id number] ANSI-Medicare Part B [id number] ANSI-Medicaid [id number] ANSI-Medicaid [id number] ANSI-Medicare Part B [id number] Medicaid [place] Medigap Part B [id number] Self [id number] Medicare [place] Gov[place] Medicare Primary [id number] Self [id number] [employer] ([place]) Workers Compensation [id number] S elf [id number] Medicare [facility] Medicare Primary [id number] Self [id number] Medicaid [place] Med[place] [id number] Self [id number] [facility] Ins () Workers Compensation [id number] S elf [id number] Medicare [facility] Medicare Primary [id number] Self [id number] [place] [id number] Self [id number] Medicare [place] Medicare Primary [id number] Self [id number] ANSI-Medicaid [id number] ANSI-Medicare Part B [id number] MEDICARE [id number] A ANSI-Medicare Part B [id number] ANSI-Medicaid [id number] ANSI-Medicare Part B [id number] ANSI-Medicaid [id number] Medicaid [place] Part B [id number] Self [id number] [place] Primary [id number] Self [id number] [place] Part B [id number] Self [id number] [place] Primary [id number] Self [id number] [place]ig[place] Part [place] [id number] Self [id number] [place] Primary [id number] Self [id number] [place]ig[place] Part [place] [id number] Self [id number] [place] Primary [id number] Self [id number] [place] Part [place] [id number] Self [id number] Medicare [place] Medicare Primary [id number] Self [id number] MEDICARE C [id number] S [id number] A MEDICAID M [id number] S [id number] MEDICARE A [id number] Self [id number] A MEDICAID M [id number] Self [id number] [employer] Ins ([place]) Workers Compensation [id number] S elf [id number] [place] [id number] Self [id number] [place] Self [place] [id number] [place]ig[place] Primary Self MEDICAID M [id number] S [id number] MEDICAID - CLINIC [id number] MEDICARE PART A-CLINIC [id number] 18 [id number] MEDICARE P UNAVAILABLE S UNAVAILA BLE MEDICAID-O/P [id number] MEDICARE -O/P [id number] 18 [id number] A Surgeries/Procedures Procedure Description Date Indications Data Source(s) THERAPEUTIC PX 1/> AREAS EACH 15 MIN EXERCISES 021 12:00:00 AM EST [facility] ([facility] ) RADEX FOOT COMPLETE MINIMUM 3 VIEWS 04/16/2020 12:00:0 0 AM EST MED[facility] ([facility] ) THERAPEUTIC PX 1/> AREAS EACH 15 MIN EXERCISES 021 12:00:00 AM EST [facility] ([facility] ) MANUAL THERAPY TQS 1/> REGIONS EACH 15 MINUTES 021 12:00:00 AM EST MED[facility] ([facility] ) THERAPEUTIC PX 1/> AREAS EACH 15 MIN EXERCISES 021 12:00:00 AM EST MED[facility] ([facility] ) MANUAL THERAPY TQS 1/> REGIONS EACH 15 MINUTES 021 12:00:00 AM EST MED[facility] ([facility] ) THERAPEUTIC PX 1/> AREAS EACH 15 MIN EXERCISES 021 12:00:00 AM EST MED[facility] ([facility] ) THERAPEUTIC PX 1/> AREAS EACH 15 MIN EXERCISES 021 12:00:00 AM EST [facility] ([facility] ) THERAPEUTIC PX 1/> AREAS EACH 15 MIN EXERCISES 021 12:00:00 AM EST [facility] ([facility] ) Physical Therapy Eval - Low Complexity 03/29/2020 12:0 0:00 AM EST [facility] ([facility] ) RADEX FOOT COMPLETE MINIMUM 3 VIEWS 03/26/2020 12:00:0 0 AM EST [facility] ([facility] ) RADEX FOOT COMPLETE MINIMUM 3 VIEWS 03/12/2020 12:00:0 0 AM EST [facility] ([facility] ) RADEX FOOT COMPLETE MINIMUM 3 VIEWS 02/26/2020 12:00:0 0 AM EST [facility] ([facility] ) RADEX FOOT COMPLETE MINIMUM 3 VIEWS 02/01/2020 12:00:0 0 AM EST [facility] ([facility] ) Apply Splint Short Leg 01/26/2020 12:00:00 AM EST [facility] ([facility] ) APPLICATION SHORT LEG CAST BELOW KNEE-TOE 01/26/2020 1 2:00:00 AM EST [facility] ([facility] ) Apply Splint Short Leg 01/19/2020 12:00:00 AM EDT [facility] ([facility] ) RADEX FOOT COMPLETE MINIMUM 3 VIEWS 01/19/2020 12:00:0 0 AM EDT [facility] ([facility] ) BONE GRAFT ANY DONOR AREA MINOR/SMALL 01/12/2020 12:00 :00 AM EDT [facility] ([facility] ) BONE GRAFT ANY DONOR AREA MINOR/SMALL 01/12/2020 12:00 :00 AM EDT [facility] ([facility] ) Arthrodesis Midtarsal/Tarsometatarsal Single 0 12:00:00 AM EDT [facility] ([facility] ) Arthrodesis Midtarsal/Tarsometatarsal Single 0 12:00:00 AM EDT [facility] ([facility] ) Arthrodesis Great Toe MP JT 01/12/2020 12:00:00 AM EDT [facility] ([facility] ) RADEX ANKLE COMPLETE MINIMUM 3 VIEWS 09/18/2019 12:00: 00 AM EDT [facility] ([facility] ) RADEX FOOT COMPLETE MINIMUM 3 VIEWS 09/18/2019 12:00:0 0 AM EDT [facility] ([facility] ) TeleMedicine Est. Pt. Level 4 06/29/2019 12:00:00 AM E DT eCW1 (Formerly [facility]) RIV4 VACC RECOMBINANT DNA IM 02/28/2019 12:00:00 AM ES T eCW1 (Formerly [facility]) Administration of influenza virus vaccine 02/28/2019 1 2:00:00 AM EST eCW1 ([facility]) Office Visit, Est Pt., Level 3 FC 02/28/2019 12:00:00 AM EST eCW1 ([facility]) Office Visit, Est Pt., Level 4 PC 02/28/2019 12:00:00 AM EST eCW1 ([facility]) Results ID Date Data Source [id number] 03/05/2020 12:00:00 AM EST [facility] Name Value Range Interpretation Code Description Data Bernie rce(s) Supporting Document(s) SARS coronavirus 2 Ag [facility] This lab was ordered by [facility] and reported by [facility]. ID Date Data Source [id number] 01/07/2020 08:30:00 AM EDT [facility] Name Value Range Interpretation Code Description Data Bernie rce(s) Supporting Document(s) SARS coronavirus 2 RNA [facility] This lab was ordered by [facility] and reported by [facility]. ID Date Data Source [id number] 11/15/2019 01:04:00 PM EDT [facility] ([facility] ) Name Value Range Interpretation Code Description Data Bernie rce(s) Supporting Document(s) Laboratory test finding (navigational concept) Laboratory test result [facility] ([facility] ) ID Date Data Source [id number] 09/26/2019 12:00:00 AM EDT [facility] N[facility]ly Malik MD Patient Name: VINNY PORTILLO [id number] [facility] 1985[facility] [address] Date of Exam: 09/26/2019PH#: Fax: [phone] EXAM: CT LOWER EXTREMITY W/O CONTRASTCLINICAL INFORMATION: Osteogenesis imperfecta.Comparison right foot xray 10/18/2012, CT right ankle 09/26/2019.TECHNIQUE:Low dose 64 slice helical scanning through the right foot was obtainedusing 2 mm increments and reconstructed in both coronal and sagittalplanes. 3D reconstructions were also obtained. Post processing wasperformed at the physician's workstation.FINDINGS:Equinovarus deformity of th e foot noted. These are chronic changes. Thereis a bone island in the medial aspect of the talar dome. There are oldpost traumatic changes in the 2nd and 3rd metatarsals proximally which arehealed. Medial deviation of the great toe at the 1st MTP joint isunchanged from the foot radiograph of 2012. Small plantar calcaneal spurnoted. There is no evidence of an acute fracture. No joint erosions ordestructive lesions.IMPRESSION:1. 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 Old post traumatic changes shafts of the 2nd and 3rd metatarsalproximally. No acute fracture identified.Accredited by the [employer] in [place]. Tomás Kelley, LIDIA/Tita you for referring VINNY B PORTILLO to our office. Electronically Signed - TOMÁS KELLEY MD 09/26/19 17:25 Name Value Range Interpretation Code Description Data Bernie rce(s) Supporting Document(s) ID Date Data Source [id number] 09/26/2019 12:00:00 AM EDT [facility] Nallely Malik MD Patient Name: VINNY PORTILLO [id number] [facility] 1985[facility] [place] [address] Date of Exam: 09/26/2019PH#: Fax: [phone] EXAM: CT LOWER EXTREMITY W/O CONTRASTCLINICAL INFORMATION: Osteogenesis imperfecta deformity.Comparison right foot 10/18/2012, CT foot 09/26/2019.TECHNIQUE:Low dose 64 slice helical scanning through the right ankle was obtainedusing 2 mm increments and reconstructed in both coronal and sagittalplanes. 3D reconstructions were also obtained. Post processing wasperformed at the physician's workstation.FINDINGS:The study shows varus deformity of the hind and mid-foot. The mortisejoint is slightly asymmetric and narrowed medially with a very subtle talartilt laterally. There is small bone island in the medial talus. Subtalarjoints show no erosions, sclerosis or other focal lesion. No heel spurs.The calcaneus is without fracture. Rotational deformity of the talus andcalcaneus which have varus configuration with more vertical orientationwith respect to the tarsal bones. No tarsal fractures, hindfoot or lowerleg fractures are identified. No gross abnormalities of the Achillestendon with Achilles fat pad normal. Proximal metatarsals show evidence ofold trauma and contour deformity proximally. This is particularly noted inthe 2nd and 3rd metatarsal shafts.IMPRESSION:1. Varus deformity of the hindfoot and mid-foot without evidence of anacute fracture. There are chronic changes in the proximal 2nd and 3rdmetatarsals and varus deformity of that hindfoot with a more verticalrelationship between the talus and calcaneus and rotational deformity withvarus of the mid-foot as well.Accredited by the [employer] in [place].Tomás Kelley, LIDIA/Tita you for referring VINNY PORTILLO to our office. Electronically Signed - TOMÁS KELLEY MD 09/26/19 17:25 Name Value Range Interpretation Code Description Data Bernie rce(s) Supporting Document(s) Procedure Social History Code Duration Value Status Description Data Source(s ) Smoking 09/08/2019 12:00:00 AM EDT Never Smoker completed Never S moker eCW1 ([facility]) Smoking 09/08/2019 12:00:00 AM EDT Never Smoker completed Never S moker eCW1 ([facility]) Vital Signs ID Date Data Source UNK Name Value Range Interpretation Code Description Data Source(s) Body mass index (BMI) [Ratio] 39.1 kg/m2 39.1 k g/m2 [facility] ([facility]) Body height 69 [in_i] 69 [in_i] [facility] ([facility]) 5'9" Body weight 265.00 [lb_av] 265.00 [lb_av] MEDEN T ([facility]) Body temperature 98.7 [degF] 98.7 [degF] [facility] ([facility]) Oxygen saturation in Arterial blood by Pulse oximetry 99 % 99 % [facility] ([facility]) Respiratory rate 16 /min 16 /min [facility] ( [facility]) Heart rate 78 /min 78 /min [facility] ([facility]) Diastolic blood pressure 88 mm[Hg] 88 mm[Hg] [facility] ([facility]) Systolic blood pressure 150 mm[Hg] 150 mm[Hg] M EDENT ([facility]) Body temperature 96.2 [degF] 96.2 [degF] [facility] ([facility] ) Body temperature 96.0 [degF] 96.0 [degF] [facility] ([facility]) Diastolic blood pressure 74 mm[Hg] 74 mm[Hg] eCW1 ([facility]) Systolic blood pressure 126 mm[Hg] 126 mm[Hg] e CW1 ([facility]) Body temperature 96.4 [degF] 96.4 [degF] eCW1 ( [facility]) Respiratory rate 18 /min 18 /min eCW1 ([facility]) Heart rate 104 /min 104 /min eCW1 ([facility]) Body mass index (BMI) [Ratio] 40.90 kg/m2 40.90 kg/m2 W1 ([facility]) Body height [in_i] eCW1 ([facility]) Body weight 277.0 [lb_av] 277.0 [lb_av] eCW1 ([facility]) Body mass index (BMI) [Ratio] 39.1 kg/m2 39.1 k g/m2 [facility] ([facility] ) Body weight 265.00 [lb_av] 265.00 [lb_av] MEDEN T ([facility]) Body height 69 [in_i] 69 [in_i] [facility] ([facility] ) 5'9" Body temperature 97.5 [degF] 97.5 [degF] [facility] ([facility]) Body mass index (BMI) [Ratio] 38.4 kg/m2 38.4 k g/m2 [facility] ([facility]) Body height 69 [in_i] 69 [in_i] [facility] ([facility]) 5'9" Body weight 260.00 [lb_av] 260.00 [lb_av] MEDEN T ([facility], [facility]) Body temperature 98.0 [degF] 98.0 [degF] [facility] ([facility]) Oxygen saturation in Arterial blood by Pulse oximetry 97 % 97 % [facility] ([facility], [facility]) Respiratory rate 20 /min 20 /min [facility] ( [facility], [facility]) Heart rate 92 /min 92 /min [facility] ([facility]) Diastolic blood pressure 94 mm[Hg] 94 mm[Hg] [facility] ([facility], [facility]) Systolic blood pressure 144 mm[Hg] 144 mm[Hg] M EDENT ([facility], [facility]) Diastolic blood pressure 87 mm[Hg] 87 mm[Hg] eCW1 ([facility]) Systolic blood pressure 138 mm[Hg] 138 mm[Hg] e CW1 ([facility]) Body mass index (BMI) [Ratio] 40.46 kg/m2 40.46 kg/m2 W1 ([facility]) Body height [in_us] eCW1 ([facility]) Body weight Measured 274 [lb_av] 274 [lb_av] eC W1 ([facility]) Body mass index (BMI) [Ratio] 38.4 kg/m2 38.4 k g/m2 MED[facility] ([facility], [facility]) Body height 69 [in_i] 69 [in_i] MED[facility] ([facility]) 5'9" Body weight 260.00 [lb_av] 260.00 [lb_av] MEDEN T ([facility]) Body temperature 98.5 [degF] 98.5 [degF] MEDENT ([facility], [facility]) Oxygen saturation in Arterial blood by Pulse oximetry 99 % 99 % MED[facility] ([facility], [facility]) Respiratory rate 16 /min 16 /min [facility] ( [facility], [facility]) Heart rate 78 /min 78 /min [facility] ([facility]) Diastolic blood pressure 80 mm[Hg] 80 mm[Hg] [facility] ([facility], [facility]) Systolic blood pressure 130 mm[Hg] 130 mm[Hg] M EDENT ([facility], [facility]) Diastolic blood pressure 88 mm[Hg] 88 mm[Hg] eCW1 ([facility]) Systolic blood pressure 146 mm[Hg] 146 mm[Hg] e CW1 ([facility]) Body temperature 96.6 [degF] 96.6 [degF] eCW1 ( [facility]) Respiratory rate 20 /min 20 /min eCW1 ([facility]) Heart rate 98 /min 98 /min eCW1 ([facility]) Body mass index (BMI) [Ratio] 40.46 kg/m2 40.46 kg/m2 eCW1 ([facility]) Body height [in_us] eCW1 ([facility]) Body weight Measured 274 [lb_av] 274 [lb_av] eC W1 ([facility]) Body mass index (BMI) [Ratio] 35.4 kg/m2 35.4 k g/m2 [facility] ([facility], [facility]) Body height 69 [in_i] 69 [in_i] MED[facility] ([facility]) 5'9" Body weight 240.00 [lb_av] 240.00 [lb_av] MEDEN T ([facility]) Body temperature 98.3 [degF] 98.3 [degF] [facility] ([facility]) Oxygen saturation in Arterial blood by Pulse oximetry 95 % 95 % [facility] ([facility]) Respiratory rate 20 /min 20 /min [facility] ( [facility]) Heart rate 84 /min 84 /min [facility] ([facility]) Diastolic blood pressure 100 mm[Hg] 100 mm[Hg] [facility] ([facility]) pt states he has not taken bp med yet Systolic blood pressure 158 mm[Hg] 158 mm[Hg] M EDENT ([facility], [facility]) pt states he has not taken bp med yet Body mass index (BMI) [Ratio] 35.4 kg/m2 35.4 k g/m2 [facility] ([facility]) Body height 69 [in_i] 69 [in_i] MED[facility] ([facility]) 5'9" Body weight 240.00 [lb_av] 240.00 [lb_av] MEDEN T ([facility], [facility]) Body temperature 98.6 [degF] 98.6 [degF] [facility] ([facility], [facility]) Oxygen saturation in Arterial blood by Pulse oximetry 95 % 95 % [facility] ([facility], [facility]) Respiratory rate 18 /min 18 /min [facility] ( [facility], [facility]) Heart rate 89 /min 89 /min [facility] ([facility], [facility]) Diastolic blood pressure 93 mm[Hg] 93 mm[Hg] [facility] ([facility], [facility]) Systolic blood pressure 160 mm[Hg] 160 mm[Hg] M EDENT ([facility], [facility]) Body mass index (BMI) [Ratio] 38.4 kg/m2 38.4 k g/m2 [facility] ([facility], [facility]) Body height 69 [in_i] 69 [in_i] [facility] ([facility]) 5'9" Body weight 260.00 [lb_av] 260.00 [lb_av] MEDEN T ([facility], [facility]) Body temperature 98.5 [degF] 98.5 [degF] [facility] ([facility], [facility]) Oxygen saturation in Arterial blood by [facility]ulse oximetry 96 % 96 % [facility]) Respiratory rate 20 /min 20 /min [facility] ( [facility], [facility]) Heart rate 88 /min 88 /min [facility] ([facility]) Diastolic blood pressure 98 mm[Hg] 98 mm[Hg] [facility] ([facility], [facility]) Systolic blood pressure 162 mm[Hg] 162 mm[Hg] M EDENT ([facility], [facility]) Diastolic blood pressure 82 mm[Hg] 82 mm[Hg] eCW1 ([facility]) Systolic blood pressure 130 mm[Hg] 130 mm[Hg] e CW1 ([facility]) Body temperature 97.4 [degF] 97.4 [degF] eCW1 ( [facility]) Respiratory rate 18 /min 18 /min eCW1 ([facility]) Heart rate 104 /min 104 /min eCW1 ([facility]) Body mass index (BMI) [Ratio] 40.64 kg/m2 40.64 kg/m2 eCW1 ([facility]) Body height [in_us] eCW1 ([facility]) Body weight Measured 275.2 [lb_av] 275.2 [lb_av ] eCW1 ([facility]) Patient Treatment Plan of Care Planned Activity Planned Date Details Description Data Source (s) Enalapril Maleate 20 MG Oral Tablet 12/29/2019 12:00:00 AM EDT eCW1 ([facility])
--- OUTSIDE RECORDS SUMMARY | 2020-04-26 02:15 | CCD | Continuity of Care Document ---
Author Author Stefano MILLARD PAAllisonC Organization Unknown Address [address] [address] Phone [phone] Care Team Providers Care Furrier Designer Name Role Phone [facility] Hugh Silverman MD Unavailable Problems Active [...] minutes Unknown Allopurinol 300mg Tablets [facility], [facility] Enalapril Maleate 20mg Tablets [facility], [facility] Hydrochlorothiazide 25mg Tablets [facility]ady, [facility] Chlorhexidine Gluconate 0.12% Solution Unknown Prednisone 20mg Tablets Portia Cruz PA Fluoxetine HCL 20mg Capsules [facility], [facility] Cefdinir 300mg Capsules Page Junior PA Immunizations Description No Information Available Vital Signs Date Vital Result Comment 02/26/2020 11:00am Body Temperature 96.2 F 01/19/2020 3:18pm Body Temperature 96.0 F Results Test Acquired Date Facility Test Result H/L Range Note Order 11/15/2019 [facility] nter Surgery <pending> Procedures Date Code Description Status 02/26/2020 28932 X-Ray Foot Complete Completed 02/01/2020 64767 X-Ray Foot Complete Completed 01/26/2020 24632 Apply Splint Short Leg Completed 01/19/2020 02899 X-Ray Foot Complete Completed 01/19/2020 37863 Apply Splint Short Leg Completed 01/12/2020 45854 Arthrodesis Great Toe MP JT Comp leted 01/12/2020 15887 Arthrodesis Midtarsal/Tarsometat arsal Single Completed 01/12/2020 86556 Arthrodesis Midtarsal/Tarsometat arsal Single Completed 01/12/2020 75327 Remove Bone For Graft Minor/Smal l Completed 01/12/2020 37939 Remove Bone For Graft Minor/Smal l Completed 09/18/2019 20464 X-Ray Foot Complete Completed 09/18/2019 64474 X-Ray Ankle Complete Completed Medical Devices Description No Information Available Encounters Type Date Location Provider Dx Diagnosis Office Visit 09/05/2019 8:30a Ashley Becker MD S8 3.014D Lateral dislocation of right patella, subsequent encounter Assessments Date Code Description Provider 02/26/2020 Z47.89 Encounter for other orthopedic a ftercare Nallely Buitrago MD 02/26/2020 Z98.1 Arthrodesis status Nallely hdez MD 02/01/2020 Z47.89 Encounter for other orthopedic a ftercare Nallely Buitrago MD 02/01/2020 Z98.1 Arthrodesis status Nallely hdez MD 01/26/2020 Z47.89 Encounter for other orthopedic a ftercare Pieter Millard PA-C 01/26/2020 Z47.89 Encounter for other orthopedic a ftercare Pieter Millard PA-C 01/26/2020 Z98.1 Arthrodesis status Pieter deal PA-C 01/26/2020 Z47.89 Encounter for other orthopedic a ftgema Buitrago MD 01/26/2020 Z98.1 Arthrodesis status Nallely [...] foot Nallely Buitrago MD 01/11/2020 Q78.0 Osteogenesis imperfecttrang Buitrago MD 11/10/2019 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 Nallely Buitrago MD 11/10/2019 Q78.0 Osteogenesis imperfecttrang Buitrago MD 09/18/2019 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 Nallely Buitrago MD 09/18/2019 Q78.0 Osteogenesis imperfecta Nallely Buitrago MD 09/05/2019 S83.014D Lateral dislocation of right pat christal, subsequent encounter Saniya Becker MD Plan of Treatment Future Appointment(s):* 03/12/2020 10:15 am - Nallely Buitrago MD at [place] 02/26/2020 - Nallely Buitrago MD* Z47.89 Encounter for other orthopedic aftercare* Follow up:* 2 weeks right foot recheck with right foot wb xrays with [facility]N * Z98.1 Arthrodesis status Functional Status Description No Information Available Mental Status Description No Information Available Referrals Refer to Reason for Referral Status Appt Date Fernando Talbot MD SURGERY NO AUTH REQUIRED FO R RT FOOT SURGERY ([id number], [id number],) TO SURGERY NT Created [address] [facility], [address] [place] [address] [phone]
--- OUTSIDE RECORDS SUMMARY | 2020-04-26 02:15 | CCD | Continuity of Care Document ---
Author Author Stefano MALIK MD Organization Unknown Address [facility] [address] Phone [phone] Care Team Providers Care Business Services Intern Name Role Phone SandhuMami [facility] AUTM [phone] Hugh Silverman MD AUT Unavailable Problems Active [...] minutes Unknown Allopurinol 300mg Tablets Mami Heart [facility] Enalapril Maleate 20mg Tablets Mami Heart, [facility] Hydrochlorothiazide 25mg Tablets Mami Grady [facility] Chlorhexidine Gluconate 0.12% Solution Unknown Prednisone 20mg Tablets Portia Cruz PA Fluoxetine HCL 20mg Capsules Mami Heart [facility] Cefdinir 300mg Capsules Ring, Page K, PA Immunizations Description No Information Available Vital Signs Date Vital Result Comment 01/19/2020 3:18pm Body Temperature 96.0 F 09/05/2019 8:33am Body Temperature 97.5 F Height 69 inches 5'9" Weight 265.00 lb BMI (Body Mass Index) 39.1 kg/m2 Results Test Acquired Date Facility Test Result H/L Range Note Order 11/15/2019 [facility] nt Surgery <pending> Procedures Date Code Description Status 02/01/2020 19719 X-Ray Foot Complete Completed 01/26/2020 10559 Apply Splint Short Leg Completed 01/19/2020 58646 X-Ray Foot Complete Completed 01/19/2020 86874 Apply Splint Short Leg Completed 09/18/2019 69877 X-Ray Foot Complete Completed 09/18/2019 77527 X-Ray Ankle Complete Completed Medical Devices Description No Information Available Encounters Type Date Location Provider Dx Diagnosis Office Visit 09/05/2019 8:30a Ashley Becker MD S8 3.014D Lateral dislocation of right patella, subsequent encounter Assessments Date Code Description Provider 02/01/2020 Z47.89 Encounter for other orthopedic a ftercare Nallely Malik MD 02/01/2020 Z98.1 Arthrodesis status Nallely hdez MD 01/26/2020 Z47.89 Encounter for other orthopedic a ftrakanare Pieter Millard PA-C 01/26/2020 Z47.89 Encounter for [...] 01/19/2020 Z98.1 Arthrodesis status Nallely hdez MD 01/11/2020 Z01.818 Encounter for other preprocedura [...] dislocation of right pat christal, subsequent encounter DWaldemar Becker MD Plan of Treatment Future Appointment(s):* 02/26/2020 10:30 am - Nallely Malik MD at [place] 02/01/2020 - Nallely Malik MD* Z47.89 Encounter for other orthopedic aftercare* Follow up:* in 3 weeks with NMN for right foot recheck with repeat xrays of right foot NWB please. * Z98.1 Arthrodesis status Functional Status Description No Information Available Mental Status Description No Information Available Referrals Refer to Reason for Referral Status Appt Date Fernando Talbot MD SURGERY NO AUTH REQUIRED FO R RT FOOT SURGERY ([id number],) TO SURGERY NT Created [address], [address] [place] [id number] [phone]
--- OUTSIDE RECORDS SUMMARY | 2020-04-26 02:15 | CCD | Continuity of Care Document ---
Author Author Stefano MALIK MD Organization Unknown Address [facility] [address] Phone [phone] Care Team Providers Care Health Sciences Dean Name Role Phone SandhuMami [facility] AUTM [phone] Hugh Silverman MD AUT Unavailable Problems [...] minutes Unknown Allopurinol 300mg Tablets Mami Heart [facility] Enalapril Maleate 20mg Tablets Mami Heart, [facility] Hydrochlorothiazide 25mg Tablets Mami Grady, [facility] Chlorhexidine Gluconate 0.12% Solution Unknown Prednisone 20mg Tablets Portia Cruz PA Fluoxetine HCL 20mg Capsules Mami Heart [facility] Cefdinir 300mg Capsules Ring, Page K, PA Immunizations Description No Information Available Vital Signs Date Vital Result Comment 02/26/2020 11:00am Body Temperature 96.2 F 01/19/2020 3:18pm Body Temperature 96.0 F Results Test Acquired Date Facility Test Result H/L Range Note Order 11/15/2019 [facility] nter Surgery <pending> Procedures Date Code Description Status 02/26/2020 68439 X-Ray Foot Complete Completed 02/01/2020 49029 X-Ray Foot Complete Completed 01/26/2020 70619 Apply Splint Short Leg Completed 01/19/2020 72623 X-Ray Foot Complete Completed 01/19/2020 66000 Apply Splint Short Leg Completed 01/12/2020 77169 Arthrodesis Great Toe MP JT Comp leted 01/12/2020 44272 Arthrodesis Midtarsal/Tarsometat arsal Single Completed 01/12/2020 68716 Arthrodesis Midtarsal/Tarsometat arsal Single Completed 01/12/2020 28223 Remove Bone For Graft Minor/Smal l Completed 01/12/2020 66858 Remove Bone For Graft Minor/Smal l Completed 09/18/2019 15180 X-Ray Foot Complete Completed 09/18/2019 71106 X-Ray Ankle Complete Completed Medical Devices Description [...] Encounter for other orthopedic a ftercare Nallely Mailk MD 02/01/2020 Z98.1 Arthrodesis status Nallely hdez [...] 10:15 am - Nallely Malik MD at [place] 02/26/2020 - Nallely Malik MD* Z47.89 Encounter for other orthopedic aftercare* Follow up:* 2 weeks right foot recheck with right foot wb xrays with NMN * Z98.1 Arthrodesis status Functional Status Description No Information Available Mental Status Description No Information Available Referrals Refer to Reason for Referral Status Appt Date Fernando Talbot MD SURGERY NO AUTH REQUIRED FO R RT FOOT SURGERY ([id number],) TO SURGERY NT Created [address] [facility], [address] [place] [address] [phone]
--- NOTE | 2020-04-26 03:41 | REPVR ---
PROCEDURE INFORMATION: Exam: XR Left Hip with Pelvis when Performed Exam date and time: 04/26/2020 3:02 AM Age: 35 years old Clinical indication: Hip pain; Left hip; Additional info: Injury TECHNIQUE: Imaging protocol: XR Left hip with pelvis when performed. Views: 2 or 3 views. COMPARISON: CT ABD PELVIS W/O CONTRAST 02/28/2015 11:33 AM FINDINGS: Bones/joints: Left femoral medullary yasir in position. Prominently deformed left femoral head and to a lesser degree neck. 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 There is secondary degenerative changes and remodeling of the left hip. No acute fracture is seen. Soft tissues: Unremarkable. IMPRESSION: 1. Left femoral medullary yasir which is similar to 02/28/2015. 2. 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 3. No acute interval fracture is seen. Electronically signed by: Wayne Huber On 04/26/2020 03:41:32 AM
--- OUTSIDE RECORDS SUMMARY | 2020-04-26 05:12 | CCD ---
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 Name Role Phone NALLELY MALIK MD Unavailable [...] Unavailable Unavailable DEVLIN, KIMBERLY Unavailable Unavailable DEVLIN, KIMBRELY Unavailable Unavailable DEVLIN, KIMBERLY Unavailable Unavailable DEVLIN, KIMBERLY Unavailable Unavailable DEVLIN, KIMBERLY Unavailable Unavailable DEVLIN, KIMBERLY Unavailable Unavailable DEVLIN, KIMBERLY Unavailable Unavailable DEVLIN, KIMBERLY Unavailable Unavailable DEVLIN, KIMBERLY Unavailable Unavailable DEVLIN, KIMBERLY Unavailable Unavailable DEVLIN, KIMBERLY Unavailable Unavailable DEVLIN, KIMBERLY Unavailable Unavailable DEVLIN, KIMBERLY Unavailable Unavailable DEVLIN, KIMBERLY Unavailable Unavailable DEVLNI, KIMBERLY Unavailable Unavailable DEVLIN, KIMBERLY Unavailable Unavailable [...] Unavailable KATHI, MIRTHA PA Unavailable Unavailable KATHI, MRITHA PA Unavailable Unavailable KATHI, MIRTHA PA Unavailable Unavailable KATHI, MIRTHA PA Unavailable Unavailable KATHI, IMRTHA PA Unavailable Unavailable KATHI, MIRTHA PA Unavailable [...] Unavailable VanVibha mackay MD Unavailable Unavailable Vibha Bceker MD Unavailable Unavailable BennyeenVibha fernández MD Unavailable [...] Unavailable NALLELY MALIK MD Unavailable Unavailable NALLELY MAILK MD Unavailable Unavailable NALLELY MALIK MD Unavailable [...] is protected by Article 27-F of the [facility] Public Health law. If you continue you may have access to information: Regarding HIV / AIDS; Provided by facilities licensed or operated by the [facility] Office of Mental Health; or Provided by the [facility] Office for People With Developmental Disabilities. If such information is present, then the following [facility] mandated warning applies: This information has been [...] law may result in a fine or group home sentence or both. A general authorization for the release of medical or other information is NOT sufficient authorization for further disc losure. Family History Family Member Name Family Member Gender Family Member Status Date o f Status Description Data Source(s) Unknown Unknown Problem MEDENT ([facility]) father's side Unknown Female Problem MEDENT ([facility]) Unknown Female Problem MEDENT ([facility]) Unknown Unknown Problem [facility] ([facility] Encounters Encounter Providers Location Date Indications Data Source(s ) Office Visit Attender: NALLELY MALIK MD Physical Therapy 09:00:00 AM EST MEDENT ([facility]) Outpatient Attender: MIRTHA Masona ry 03/05/2020 08:45:00 AM EST [facility] ([facility]) Unknown [address] [facility] [place] [address] 12/29/2019 12:00:00 AM EDT eCW1 ([facility]) Outpatient Referrer: NALLELY MALIK MD 09/21/2019 09:49:0 0 AM EDT [facility] Imaging Outpatient Referrer: KIMBERLY DEVLIN 09/21/2019 09:43:00 A M EDT [facility] Office Visit, Est Pt., Level 4 PC [address] [place] [address] 09/08/2019 12:00:00 AM EDT eCW1 ([facility]) Outpatient Attender: Vibha Becker MD Physical Therap y 09/05/2019 08:30:00 AM EDT MEDENT ([facility]) [facility] [address] [place] [address] 08/31/2019 12:00:00 AM EDT eCW1 ([facility]) [address] [place] [address] 08/21/2019 12:00:00 AM EDT eCW1 ([facility]) Outpatient Attender: PRICILLA Barillas Primary 07/01/2019 01:00:00 PM EDT MEDENT ([facility]) [address] [place] [address] 06/29/2019 12:00:00 AM EDT eCW1 ([facility]) Outpatient Attender: Portia Mason jose 06/28/2019 11:00:00 AM EDT MED[facility] ([facility]) [address] [place] [address] 06/28/2019 12:00:00 AM EDT eCW1 ([facility]) [address] [place] [address] 06/22/2019 12:00:00 AM EDT eCW1 ([facility]) Outpatient Attender: PRICILLA Barillas Primary 05/24/2019 08:00:00 AM EST MEDENT ([facility], [facility]) [facility] [place] [address] [facility] [place] [address] 05/09/2019 12:00:00 AM EST eCW1 ([facility]) Outpatient Attender: PRICILLA Barillas Primary 05/07/2019 08:45:00 AM EST MEDENT ([facility], [facility]) Outpatient Attender: PRICILLA Barillas Primary 04/17/2019 08:00:00 AM EST MEDENT ([facility], [facility]) [facility] [place] [address] [facility] [place] [address] 02/28/2019 12:00:00 AM EST eCW1 ([facility]) Immunizations Vaccine Date Status Description Data Source(s) influenza, recombinant, quadrIvalent,injectable, prese rvative free 02/28/2019 01:41:00 PM EST completed eCW1 ([facility]) influenza, recombinant, quadrIvalent,injectable, prese rvative free 02/28/2019 01:41:00 PM EST completed eCW1 ([facility]) influenza, recombinant, quadrIvalent,injectable, prese rvative free 02/28/2019 01:41:00 PM EST completed eCW1 ([facility]) Medications Medication Brand Name Start Date Product Form Dose Route Admi nistrative Instructions Pharmacy Instructions Status Indications Reaction Description Data Source(s) 20 mg 04/12/2020 12:00:00 AM EST capsule 180 TAKE TWO CAPSULES BY MOUTH EVERY MORNING TAKE TWO CAPSULES BY MOUTH EVERY MORNING SOLD: 04/13/2020 [facility] Ondansetron 8 MG Disintegrating Oral Tablet Ondansetron 03/05/2020 12:00:00 AM EST active MEDENT ([facility]) 8 mg 03/05/2020 12:00:00 [...] 12:00:00 AM EDT ORAL active MEDENT ([facility] ) 20 mg 12/30/2019 12:00:00 [...] active Enalapril M aleate 20 MG eCW1 ([facility]) 0.12 % 07/31/2019 12:00:00 AM EDT mouthwash [...] Prednisone 06/28/2019 12:00:00 AM EDT active MEDENT ([facility], [facility]) 20 mg 06/28/2019 12:00:00 AM EDT tablet [...] 05/24/2019 12:00:00 AM EST ORAL completed MEDENT ([facility], [facility]) 300 mg 05/24/2019 12:00:00 AM EST capsule [...] 05/07/2019 12:00:00 AM EST ORAL completed MEDENT ([facility], [facility]) 20 mg 04/17/2019 12:00:00 AM EST tablet 10 TAKE ONE TABLET BY MOUTH TWICE A DAY FOR 5 DAYS TAKE ONE TABLET BY MOUTH TWICE A DAY FOR 5 DAYS SOLD: 2019 [facility] Prednisone 20 MG Oral Tablet Prednisone 04/17/2019 12:00:00 AM EST ORAL completed MEDENT ([facility], [facility]) 25 mg 12/30/2018 12:00:00 AM EDT tablet [...] type / Coverage type Policy ID Covered constitution party ID Covered constitution party's relationship to bryson Policy Bryson Plan Information EMEDNY [id number] SP [id number] MEDICARE [id number] SP [id number] Y50 EMEDNY [id number] MEDICAID [id number] MEDICARE C [id number] S [id number] Y50 MEDICAID [id number] MEDICAID [id number] [facility]-Medicare Part B [id number] [facility]-Medicaid [id number] [facility]-Medicaid [id number] ANSI-Medicare Part B [id number] ANSI-Medicare Part B [id number] ANSI-Medicaid [id number] ANSI-Medicare Part B [id number] ANSI-Medicaid [id number] ANSI-Medicare Part B [id number] ANSI-Medicaid [id number] ANSI-Medicaid [id number] ANSI-Medicare Part B [id number] [place] B [id number] Self [id number] Medicare [place] Gov't Servi Medicare Primary [id number] Self [id number] [employer] ([place]) Workers Compensation [id number] S elf [id number] Medicare [place] Medicare Primary [id number] Self [id number] [place] [id number] Self [id number] [facility] Ins () Workers Compensation [id number] S elf [id number] Medicare [place] Medicare Primary [id number] Self [id number] [place] [id number] Self [id number] Medicare [place] Gov[place] Serv[place] Medicare Primary [id number] Self [id number] ANSI-Medicaid [id number] ANSI-Medicare Part B [id number] MEDICARE [id number] ANSI-Medicare Part B [id number] ANSI-Medicaid [id number] ANSI-Medicare Part B [id number] ANSI-Medicaid [id number] [place] [id number] Self [id number] Medicare [place] Gov[place] Serv[place] Medicare Primary [id number] Self [id number] [place] [id number] Self [id number] Medicare [place] Gov[place] Serv[place] Medicare Primary [id number] Self [id number] [place]ig[place] [id number] Self [id number] [place] Gov[place] Serv[place] Medicare Primary [id number] Self [id number] [place] [id number] Self [id number] Medicare [place] Gov[place] Serv[place] Medicare Primary [id number] Self [id number] [place] [id number] Self [id number] Medicare [place] Gov[place] Medicare Primary [id number] Self [id number] MEDICARE C [id number] S [id number] MEDICAID M [id number] S [id number] MEDICARE A [id number] Self [id number] MEDICAID M [id number] Self [id number] ([place]) Workers Compensation [id number] S elf [id number] [place] [id number] Self [id number] [place] Self [place] B Self [place] [id number] SP [id number] [place] Medig[place] Self [place] Self [place] Primary Self MEDICAID M [id number] S [id number] MEDICAID - CLINIC [id number] MEDICARE PART A-CLINIC [id number] MEDICARE P UNAVAILABLE S UNAVAILA BLE MEDICAID-O/P [id number] MEDICARE -O/P [id number] 18 [id number] A Surgeries/Procedures Procedure Description Date Indications Data Source(s) THERAPEUTIC PX 1/> AREAS EACH 15 MIN EXERCISES 021 12:00:00 AM EST MEDENT ([facility] ) RADEX FOOT COMPLETE MINIMUM 3 VIEWS 04/16/2020 12:00:0 0 AM EST MEDENT ([facility] ) THERAPEUTIC PX 1/> AREAS EACH 15 MIN EXERCISES 021 12:00:00 AM EST MEDENT ([facility] ) MANUAL THERAPY TQS 1/> REGIONS EACH 15 MINUTES 021 12:00:00 AM EST MEDENT ([facility] ) THERAPEUTIC PX 1/> AREAS EACH 15 MIN EXERCISES 021 12:00:00 AM EST MEDENT ([facility] ) MANUAL THERAPY TQS 1/> REGIONS EACH 15 MINUTES 021 12:00:00 AM EST MEDENT ([facility] ) THERAPEUTIC PX 1/> AREAS EACH 15 MIN EXERCISES 021 12:00:00 AM EST MEDENT ([facility] ) THERAPEUTIC PX 1/> AREAS EACH 15 MIN EXERCISES 021 12:00:00 AM EST MEDENT ([facility] ) THERAPEUTIC PX 1/> AREAS EACH 15 MIN EXERCISES 021 12:00:00 AM EST MEDENT ([facility] ) Physical Therapy Eval - Low Complexity 03/29/2020 12:0 0:00 AM EST MEDENT ([facility] ) RADEX FOOT COMPLETE MINIMUM 3 VIEWS 03/26/2020 12:00:0 0 AM EST MEDENT ([facility] ) RADEX FOOT COMPLETE MINIMUM 3 VIEWS 03/12/2020 12:00:0 0 AM EST MEDENT ([facility] ) RADEX FOOT COMPLETE MINIMUM 3 VIEWS 02/26/2020 12:00:0 0 AM EST MEDENT ([facility] ) RADEX FOOT COMPLETE MINIMUM 3 VIEWS 02/01/2020 12:00:0 0 AM EST MEDENT ([facility] ) Apply Splint Short Leg 01/26/2020 12:00:00 AM EST MEDENT ([facility] ) APPLICATION SHORT LEG CAST BELOW KNEE-TOE 01/26/2020 1 2:00:00 AM EST MEDENT ([facility] ) Apply Splint Short Leg 01/19/2020 12:00:00 AM EDT MEDENT ([facility] ) RADEX FOOT COMPLETE MINIMUM 3 VIEWS 01/19/2020 12:00:0 0 AM EDT MEDENT ([facility] ) BONE GRAFT ANY DONOR AREA MINOR/SMALL 01/12/2020 12:00 :00 AM EDT MEDENT ([facility] ) BONE GRAFT ANY DONOR AREA MINOR/SMALL 01/12/2020 12:00 :00 AM EDT MEDENT ([facility] ) Arthrodesis Midtarsal/Tarsometatarsal Single 0 12:00:00 AM EDT MEDENT ([facility] ) Arthrodesis Midtarsal/Tarsometatarsal Single 0 12:00:00 AM EDT MEDENT ([facility] ) Arthrodesis Great Toe MP JT 01/12/2020 12:00:00 AM EDT MEDENT ([facility] ) RADEX ANKLE COMPLETE MINIMUM 3 VIEWS 09/18/2019 12:00: 00 AM EDT MEDENT ([facility] ) RADEX FOOT COMPLETE MINIMUM 3 VIEWS 09/18/2019 12:00:0 0 AM EDT MEDENT ([facility] ) TeleMedicine Est. Pt. Level 4 06/29/2019 12:00:00 AM E DT eCW1 ([facility]) RIV4 VACC RECOMBINANT DNA IM 02/28/2019 12:00:00 AM ES T eCW1 ([facility]) Administration of influenza virus vaccine 02/28/2019 1 2:00:00 AM EST eCW1 ([facility]) Office Visit, Est Pt., Level 3 FC 02/28/2019 12:00:00 AM EST eCW1 ([facility]) Office Visit, Est Pt., Level 4 PC 02/28/2019 12:00:00 AM EST eCW1 ([facility]) Results ID Date Data Source [id number] 03/05/2020 12:00:00 AM EST [facility] Name Value Range Interpretation Code Description Data Bernie rce(s) Supporting Document(s) SARS coronavirus 2 Ag [facility] This lab was ordered by [facility] and reported by [facility]. ID Date Data Source [id number] 01/07/2020 08:30:00 AM EDT [facility] Name Value Range Interpretation Code Description Data Bernie rce(s) Supporting Document(s) SARS coronavirus 2 RNA [facility] This lab was ordered by [facility] and reported by [facility]. ID Date Data Source [id number] 11/15/2019 01:04:00 PM EDT MEDENT ([facility] ) Name Value Range Interpretation Code Description Data Bernie rce(s) Supporting Document(s) Laboratory test finding (navigational concept) Laboratory test result MEDENT ([facility] ) ID Date Data Source [id number] 09/26/2019 12:00:00 AM EDT [facility] Nallely Malik MD Patient Name: VINNY PORTILLO [id number] [facility] 1985[facility] [place] [address] Date of Exam: 09/26/2019PH#: Fax: [phone] EXAM: [...] metatarsalproximally. No acute fracture identified.Accredited by the [employer] in [place]. Tomás Kelley, LIDIA/Tita you for referring VINNY B PORTILLO to our office. Electronically Signed - TOMÁS KELLEY MD 09/26/19 17:25 Name Value Range Interpretation Code Description Data Bernie rce(s) Supporting Document(s) ID Date Data Source [id number] 09/26/2019 12:00:00 AM EDT [facility] Nallely Malik MD Patient Name: VINNY PORTILLO [id number] [facility] 1985[facility] [place] [address] Date of Exam: 09/26/2019PH#: Fax: [phone] EXAM: [...] of the mid-foot as well.Accredited by the [employer] in [place].Tomás Kelley, LIDIA/Tita you for referring VINNY PORTILLO to our office. Electronically Signed - TOMÁS KELLEY MD 09/26/19 17:25 Name Value Range Interpretation Code Description Data Bernie rce(s) Supporting Document(s) Procedure Social History Code Duration Value Status Description Data Source(s ) Smoking 09/08/2019 12:00:00 AM EDT Never Smoker completed Never S moker eCW1 ([facility]) Smoking 09/08/2019 12:00:00 AM EDT Never Smoker completed Never S moker eCW1 ([facility]) Vital Signs ID Date Data Source UNK Name Value Range Interpretation Code Description Data Source(s) Body mass index (BMI) [Ratio] 39.1 kg/m2 39.1 k g/m2 [facility] ([facility]) Body height 69 [in_i] 69 [in_i] [facility] ([facility]) 5'9" Body weight 265.00 [lb_av] 265.00 [lb_av] MEDEN T ([facility]) Body temperature 98.7 [degF] 98.7 [degF] [facility] ([facility]) Oxygen saturation in Arterial blood by Pulse oximetry 99 % 99 % [facility] ([facility]) Respiratory rate 16 /min 16 /min [facility] ( [facility]) Heart rate 78 /min 78 /min [facility] ([facility]) Diastolic blood pressure 88 mm[Hg] 88 mm[Hg] [facility] ([facility]) Systolic blood pressure 150 mm[Hg] 150 mm[Hg] M EDENT ([facility], [facility]) Body temperature 96.2 [degF] 96.2 [degF] MEDENT ([facility] ) Body temperature 96.0 [degF] 96.0 [degF] MEDENT ([facility]) Diastolic blood pressure 74 mm[Hg] 74 mm[Hg] eCW1 ([facility]) Systolic blood pressure 126 mm[Hg] 126 mm[Hg] e CW1 ([facility]) Body temperature 96.4 [degF] 96.4 [degF] eCW1 ( [facility]) Respiratory rate 18 /min 18 /min eCW1 ([facility]) Heart rate 104 /min 104 /min eCW1 ([facility]) Body mass index (BMI) [Ratio] 40.90 kg/m2 40.90 kg/m2 W1 ([facility]) Body height [in_i] eCW1 ([facility]) Body weight 277.0 [lb_av] 277.0 [lb_av] eCW1 ([facility]) Body mass index (BMI) [Ratio] 39.1 kg/m2 39.1 k g/m2 MEDENT ([facility] ) Body weight 265.00 [lb_av] 265.00 [lb_av] MEDEN T ([facility]) Body height 69 [in_i] 69 [in_i] MEDENT ([facility] ) 5'9" Body temperature 97.5 [degF] 97.5 [degF] MEDENT ([facility]) Body mass index (BMI) [Ratio] 38.4 kg/m2 38.4 k g/m2 MEDENT ([facility], [facility]) Body height 69 [in_i] 69 [in_i] MEDENT ([facility], [facility]) 5'9" Body weight 260.00 [lb_av] 260.00 [lb_av] MEDEN T ([facility], [facility]) Body temperature 98.0 [degF] 98.0 [degF] MEDENT ([facility], [facility]) Oxygen saturation in Arterial blood by Pulse oximetry 97 % 97 % MEDENT ([facility], [facility]) Respiratory rate 20 /min 20 /min MEDENT ( [facility], [facility]) Heart rate 92 /min 92 /min MEDENT ([facility], [facility]) Diastolic blood pressure 94 mm[Hg] 94 mm[Hg] MEDENT ([facility], [facility]) Systolic blood pressure 144 mm[Hg] 144 mm[Hg] M EDENT ([facility], [facility]) Diastolic blood pressure 87 mm[Hg] 87 mm[Hg] eCW1 ([facility]) Systolic blood pressure 138 mm[Hg] 138 mm[Hg] e CW1 ([facility]) Body mass index (BMI) [Ratio] 40.46 kg/m2 40.46 kg/m2 W1 ([facility]) Body height [in_us] eCW1 ([facility]) Body weight Measured 274 [lb_av] 274 [lb_av] eC W1 ([facility]) Body mass index (BMI) [Ratio] 38.4 kg/m2 38.4 k g/m2 MEDENT ([facility], [facility]) Body height 69 [in_i] 69 [in_i] MEDENT ([facility], [facility]) 5'9" Body weight 260.00 [lb_av] 260.00 [lb_av] MEDEN T ([facility], [facility]) Body temperature 98.5 [degF] 98.5 [degF] MEDENT ([facility], [facility]) Oxygen saturation in Arterial blood by Pulse oximetry 99 % 99 % MEDENT ([facility], [facility]) Respiratory rate 16 /min 16 /min MEDENT ( [facility], [facility]) Heart rate 78 /min 78 /min MEDENT ([facility], [facility]) Diastolic blood pressure 80 mm[Hg] 80 mm[Hg] MEDENT ([facility], [facility]) Systolic blood pressure 130 mm[Hg] 130 mm[Hg] M EDENT ([facility], [facility]) Diastolic blood pressure 88 mm[Hg] 88 mm[Hg] eCW1 ([facility]) Systolic blood pressure 146 mm[Hg] 146 mm[Hg] e CW1 ([facility]) Body temperature 96.6 [degF] 96.6 [degF] eCW1 ( [facility]) Respiratory rate 20 /min 20 /min eCW1 ([facility]) Heart rate 98 /min 98 /min eCW1 ([facility]) Body mass index (BMI) [Ratio] 40.46 kg/m2 40.46 kg/m2 eCW1 ([facility]) Body height [in_us] eCW1 ([facility]) Body weight Measured 274 [lb_av] 274 [lb_av] eC W1 ([facility]) Body mass index (BMI) [Ratio] 35.4 kg/m2 35.4 k g/m2 MEDENT ([facility], [facility]) Body height 69 [in_i] 69 [in_i] MEDENT ([facility], [facility]) 5'9" Body weight 240.00 [lb_av] 240.00 [lb_av] MEDEN T ([facility], [facility]) Body temperature 98.3 [degF] 98.3 [degF] MEDENT ([facility], [facility]) Oxygen saturation in Arterial blood by Pulse oximetry 95 % 95 % MEDENT ([facility], [facility]) Respiratory rate 20 /min 20 /min MED[facility] ( [facility], [facility]) Heart rate 84 /min 84 /min MEDENT ([facility], [facility]) Diastolic blood pressure 100 mm[Hg] 100 mm[Hg] MEDENT ([facility], [facility]) pt states he has not taken bp med yet Systolic blood pressure 158 mm[Hg] 158 mm[Hg] M EDENT ([facility], [facility]) pt states he has not taken bp med yet Body mass index (BMI) [Ratio] 35.4 kg/m2 35.4 k g/m2 MEDENT ([facility], [facility]) Body height 69 [in_i] 69 [in_i] [facility] ([facility] [facility], [facility]) 5'9" Body weight 240.00 [lb_av] 240.00 [lb_av] MEDEN T ([facility], [facility]) Body temperature 98.6 [degF] 98.6 [degF] MEDENT ([facility], [facility]) Oxygen saturation in Arterial blood by Pulse oximetry 95 % 95 % MEDENT ([facility], [facility]) Respiratory rate 18 /min 18 /min MEDENT ( [facility], [facility]) Heart rate 89 /min 89 /min MEDENT ([facility], [facility]) Diastolic blood pressure 93 mm[Hg] 93 mm[Hg] MEDENT ([facility], [facility]) Systolic blood pressure 160 mm[Hg] 160 mm[Hg] M EDENT ([facility], [facility]) Body mass index (BMI) [Ratio] 38.4 kg/m2 38.4 k g/m2 MEDENT ([facility], [facility]) Body height 69 [in_i] 69 [in_i] MEDENT ([facility], [facility]) 5'9" Body weight 260.00 [lb_av] 260.00 [lb_av] MEDEN T ([facility], [facility]) Body temperature 98.5 [degF] 98.5 [degF] MEDENT ([facility], [facility]) Oxygen saturation in Arterial blood by Pulse oximetry 96 % 96 % [facility] ([facility], [facility]) Respiratory rate 20 /min 20 /min MEDENT ( [facility], [facility]) Heart rate 88 /min 88 /min MEDENT ([facility], [facility]) Diastolic blood pressure 98 mm[Hg] 98 mm[Hg] MEDENT ([facility], [facility]) Systolic blood pressure 162 mm[Hg] 162 mm[Hg] M EDENT ([facility], [facility]) Diastolic blood pressure 82 mm[Hg] 82 mm[Hg] eCW1 ([facility]) Systolic blood pressure 130 mm[Hg] 130 mm[Hg] e CW1 ([facility]) Body temperature 97.4 [degF] 97.4 [degF] eCW1 ( [facility]) Respiratory rate 18 /min 18 /min eCW1 ([facility]) Heart rate 104 /min 104 /min eCW1 ([facility]) Body mass index (BMI) [Ratio] 40.64 kg/m2 40.64 kg/m2 eCW1 ([facility]) Body height [in_us] eCW1 ([facility]) Body weight Measured 275.2 [lb_av] 275.2 [lb_av ] eCW1 ([facility]) Patient Treatment Plan of Care Planned Activity Planned Date Details Description Data Source (s) Enalapril Maleate 20 MG Oral Tablet 12/29/2019 12:00:00 AM EDT eCW1 ([facility])
== END 2020-04-26 04:37 | disposition left against medical advice (07) ==
LOC: M ED 02:06
DX: Z53.21 Procedure and treatment not carried out due to patient leaving prior to being seen by health care provider (principal)

== ENCOUNTER 2020-04-30 14:22 | Emergency (ER) | payer MEDICARE, MEDICAID ==
[~2020-04-30] VITALS: Ht 175.3 cm; Wt 118.2 kg
[~2020-04-30 14:22] MED LIST changes: +HYDR-3490 PO; -HYDR25TAB PO
--- NOTE | 2020-04-30 15:12 | REP ---
INDICATION: pain after fall. COMPARISON: 04/26/2020. TECHNIQUE: AP pelvis and AP and frogleg views left hip. FINDINGS: There is again marked deformity of the left femoral head neck with significant flattening and joint surface irregularity. There is sclerotic change in the femoral head. Findings are unchanged dating back to 08/06/2005. there is no acute fracture or dislocation. Intramedullary yasir is seen in the visualized femoral shaft. IMPRESSION: Stable chronic deformity left femoral head neck. No acute findings. <Electronically signed by Nelson Burks > 04/30/20 [id number]
[2020-04-30] MEDS ORDERED: IBUP80TA PO ×2 (15:39→15:41)
[2020-04-30] MEDS ORDERED: IBUPROFEN 800 MG TAB PO ONE (15:45)
[2020-04-30 15:54] VITALS: BP 155/93
== END 2020-04-30 15:57 | disposition home or self-care (01) ==
LOC: M ED 14:22 → EDBD 14:22 → M ED 15:57
DX: S76.011A Strain of muscle, fascia and tendon of right hip, initial encounter (principal); W01.0XXA Fall on same level from slipping, tripping and stumbling without subsequent striking against object, initial encounter; Y92.099 Unspecified place in other non-institutional residence as the place of occurrence of the external cause; Y93.9 Activity, unspecified; Y99.9 Unspecified external cause status; Q78.0 Osteogenesis imperfecta; I10 Essential (primary) hypertension; M10.9 Gout, unspecified; Z79.899 Other long term (current) drug therapy

== ENCOUNTER → 2020-05-17 | Outpatient (REF) | payer MEDICARE, MEDICAID ==
[~2020-05-17] MED LIST changes: +IBUP80TA PO
[2020-05-17 16:46] LABS: BASO # 0.2 10^3/uL (0.0-0.2); BASO % 1.3 % (0.0-1.0); EOS # 0.4 10^3/uL (0.0-0.5); HEMATOCRIT 50.9 % (42.0-52.0); HEMOGLOBIN 17.2 g/dl (13.5-17.5); LYMPH # 2.5 10^3/uL (1.5-5.0); LYMPH % 20.5 % (24.0-44.0); MEAN CORPUSCULAR HEMOGLOBIN 29.7 pg (27.0-33.0); MEAN CORPUSCULAR HGB CONC 33.8 g/dl (32.0-36.5); MEAN CORPUSCULAR VOLUME 87.9 fl (80.0-96.0); MONO # 1.2 10^3/uL (0.0-0.8); MONO % 9.6 % (2.0-8.0); NEUTROPHILS # 7.9 10^3/uL (1.5-8.5); NEUTROPHILS % 65.3 % (36.0-66.0); PLATELET COUNT, AUTOMATED 400 10^3/uL (150-450); RED BLOOD COUNT 5.79 10^6/uL (4.30-6.10); WHITE BLOOD COUNT 12.1 10^3/uL (4.0-10.0)
[2020-05-17 17:16] LABS: ALBUMIN 4.7 GM/DL (3.2-5.2); ALT/SGPT 27 U/L (12-78); BILIRUBIN,TOTAL 0.3 MG/DL (0.2-1.0); BLOOD UREA NITROGEN 18 MG/DL (7-18); CALCIUM LEVEL 10.3 MG/DL (8.5-10.1); CARBON DIOXIDE LEVEL 23 MEQ/L (21-32); CHLORIDE LEVEL 106 MEQ/L (98-107); CHOLESTEROL LEVEL 240 MG/DL (<200); CHOLESTEROL RISK RATIO 6.857 (<5); CREATININE FOR GFR 1.28 MG/DL (0.70-1.30); GLOMERULAR FILTRATION RATE > 60.0 (>60); GLUCOSE, FASTING 101 MG/DL (70-100); HDL CHOLESTEROL 35 MG/DL (>40); LDL CHOLESTEROL 138 MG/DL (<100); NON-HDL-C 205 MG/DL; POTASSIUM SERUM 4.2 MEQ/L (3.5-5.1); SODIUM LEVEL 139 MEQ/L (136-145); TOTAL 25(OH) VITAMIN D 17.8 NG/ML (30.0-100.0); TOTAL PROTEIN 8.1 GM/DL (6.4-8.2); TRIGLYCERIDES LEVEL 334 MG/DL (<150)
[2020-05-17 18:01] LABS: HEMOGLOBIN A1c 5.4 %
== END ==
LOC: M SFHCADAM 13:24
PROVIDERS: ATTEND Physician Assistant Medical
DX: E66.01 Morbid (severe) obesity due to excess calories (principal); I10 Essential (primary) hypertension; E55.9 Vitamin D deficiency, unspecified; E78.1 Pure hyperglyceridemia; R73.01 Impaired fasting glucose; E78.2 Mixed hyperlipidemia; Q78.0 Osteogenesis imperfecta

== ENCOUNTER → 2020-08-25 | Outpatient (CLI) | payer MEDICARE, MEDICAID | LOC: M RAD 10:05 | PROVIDERS: ATTEND Physician Assistant | DX: M70.62 Trochanteric bursitis, left hip (principal) ==

== ENCOUNTER → 2020-09-21 | Outpatient (CLI) | payer MEDICARE, MEDICAID ==
[~2020-09-21] MED LIST changes: +BETA145CR TOP; +CLAR10CA3 PO; +CYCL-707 PO; +IBUP-1022 PO; +METO1TAB7 PO; +NORV5TAB PO; +VALA500T5 PO; +VITAD400CA PO
== END ==
LOC: M RAD 08:28
PROVIDERS: ATTEND Physician Assistant
DX: M70.62 Trochanteric bursitis, left hip (principal); Z53.9 Procedure and treatment not carried out, unspecified reason

== ENCOUNTER → 2020-12-12 | Outpatient (CLI) | payer MEDICARE, MEDICAID | LOC: M LABSMTC 11:27 | PROVIDERS: ATTEND Anesthesiology | DX: Z11.52 Encounter for screening for COVID-19 (principal) ==

== ENCOUNTER → 2020-12-17 | Outpatient (CLI) | payer MEDICARE, MEDICAID ==
[~2020-12-17] MED LIST changes: +IBUPROFEN 600MG TAB PO PRN; +ISOVUE-300 61% 50ML VIAL As Ordered ONE; +LR 1,000 ML IV SCH; +ONDANSETRON 4MG/2ML VIAL IV PRN; +PROHANCE 279.3MG/ML 5ML VIAL As Ordered ONE; +propofoL 200 MG/20 ML VIAL ONE
--- NOTE | 2020-12-17 09:46 | REP ---
INDICATION: LT HIP BRUSITIS. COMPARISON: Comparison is made with images from his CT study of the pelvis February 28, 2015 as well as recent radiographs from April 30, 2020. TECHNIQUE: Coronal T1 and fat sat T2 images of both hips are acquired. In addition, smaller [id number] high-resolution T2 weighted fat sat images of the left hip are presented in all 3 planes. FINDINGS: There is a linear band of low T1 high T2 signal in the right sacrum laterally involving the 1st and possibly 2nd sacral segment consistent with developing sacral stress fracture. Cortical and medullary bone signal intensity are otherwise normal in the sacrum. The right pelvis shows normal signal intensity. No significant right hip joint effusion is seen. There is mild femoroacetabular spurring on the right. There is minimal edema on the acetabular side of the left hip joint. Otherwise cortical and medullary bone signal intensity is normal on the left. There is a small quantity of left hip joint fluid. There is fragmentation visible in the deformed flattened femoral head with a curvilinear fragment in medial acetabulum and a pseudoarthrosis between it and the remaining femur. There is femoroacetabular impingement as seen on radiographs and 2015 CT but the fragmentation appears to be a new finding. This intra-articular fragment measures 4.8 cm in oblique cranial to caudal by 1.8 cm in oblique medial to lateral by 3.5 cm in oblique anteroposterior dimension. There is metallic field susceptibility artifact in the subtrochanteric femur from orthopedic hardware in this position. 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 A small amount of joint fluid is visible. Findings suggestive of stress fracture of the right upper sacrum. Minimal femoroacetabular spurring in the right hip. <Electronically signed by Kin Aguirre > 12/17/20 [id number]
[2020-12-17 10:20] VITALS: BP 125/77
== END ==
LOC: M RAD 07:10
PROVIDERS: ATTEND Physician Assistant
DX: M70.62 Trochanteric bursitis, left hip (principal)

== ENCOUNTER → 2021-12-01 | Outpatient (REF) | payer MEDICARE, MEDICAID ==
[~2021-12-01] MED LIST changes: -IBUPROFEN 600MG TAB PO PRN; -ISOVUE-300 61% 50ML VIAL As Ordered ONE; -LR 1,000 ML IV SCH; -ONDANSETRON 4MG/2ML VIAL IV PRN; -PROHANCE 279.3MG/ML 5ML VIAL As Ordered ONE; -propofoL 200 MG/20 ML VIAL ONE
[2021-12-01 14:25] LABS: BASO # 0.1 10^3/uL (0.0-0.2); BASO % 1.1 % (0.0-1.0); EOS # 0.3 10^3/uL (0.0-0.5); EOS % 2.7 % (0.0-3.0); HEMATOCRIT 48.5 % (42.0-52.0); HEMOGLOBIN 16.3 g/dl (13.5-17.5); LYMPH # 2.3 10^3/uL (1.5-5.0); LYMPH % 18.3 % (24.0-44.0); MEAN CORPUSCULAR HEMOGLOBIN 30.4 pg (27.0-33.0); MEAN CORPUSCULAR HGB CONC 33.6 g/dl (32.0-36.5); MEAN CORPUSCULAR VOLUME 90.5 fl (80.0-96.0); MONO # 1.1 10^3/uL (0.0-0.8); MONO % 8.5 % (2.0-8.0); NEUTROPHILS # 8.7 10^3/uL (1.5-8.5); PLATELET COUNT, AUTOMATED 339 10^3/uL (150-450); RED BLOOD COUNT 5.36 10^6/uL (4.30-6.10); WHITE BLOOD COUNT 12.7 10^3/uL (4.0-10.0)
[2021-12-01 15:47] LABS: ALT/SGPT 29 U/L (12-78); BILIRUBIN,TOTAL 0.6 MG/DL (0.2-1.0); BLOOD UREA NITROGEN 15 MG/DL (7-18); CALCIUM LEVEL 9.7 MG/DL (8.5-10.1); CARBON DIOXIDE LEVEL 26 MEQ/L (21-32); CHLORIDE LEVEL 109 MEQ/L (98-107); CHOLESTEROL LEVEL 192 MG/DL (<200); CHOLESTEROL RISK RATIO 5.052 (<5); CREATININE FOR GFR 1.12 MG/DL (0.70-1.30); GLOMERULAR FILTRATION RATE > 60.0 (>60); GLUCOSE, FASTING 85 MG/DL (70-100); HDL CHOLESTEROL 38 MG/DL (>40); LDL CHOLESTEROL 110 MG/DL (<100); NON-HDL-C 154 MG/DL; POTASSIUM SERUM 4.4 MEQ/L (3.5-5.1); SODIUM LEVEL 141 MEQ/L (136-145); TOTAL PROTEIN 7.6 GM/DL (6.4-8.2); TRIGLYCERIDES LEVEL 220 MG/DL (<150); URIC ACID 5.5 MG/DL (3.5-7.2)
[2021-12-01 16:54] LABS: TOTAL 25(OH) VITAMIN D 22.2 NG/ML (30.0-100.0)
[2021-12-01 17:37] LABS: HEMOGLOBIN A1c 5.5 %
== END ==
LOC: M SFHCADAM 11:03
PROVIDERS: ATTEND Physician Assistant Medical
DX: L72.3 Sebaceous cyst (principal); E66.01 Morbid (severe) obesity due to excess calories; E78.1 Pure hyperglyceridemia; E78.2 Mixed hyperlipidemia; R73.01 Impaired fasting glucose; M1A.9XX0 Chronic gout, unspecified, without tophus (tophi); E55.9 Vitamin D deficiency, unspecified

== ENCOUNTER → 2021-12-30 | Outpatient (CLI) | payer MEDICARE, MEDICAID | LOC: M RAD 09:07 | PROVIDERS: ATTEND Physician Assistant Medical | DX: I10 Essential (primary) hypertension (principal) ==

== ENCOUNTER → 2022-01-12 | Outpatient (CLI) | payer MEDICARE, MEDICAID ==
[2022-01-12 12:39] LABS: MALB URINE SIEMENS 26.9 MG/L; MAU/CREAT RATIO 10.9 MCG/MG (0.0-30.0)
[2022-01-12 12:48] LABS: ALBUMIN 3.7 GM/DL (3.2-5.2); BLOOD UREA NITROGEN 16 MG/DL (7-18); CALCIUM LEVEL 9.5 MG/DL (8.5-10.1); CARBON DIOXIDE LEVEL 26 MEQ/L (21-32); CHLORIDE LEVEL 108 MEQ/L (98-107); CREATININE FOR GFR 0.77 MG/DL (0.70-1.30); FREE T4 1.01 NG/DL (0.76-1.46); GLOMERULAR FILTRATION RATE > 60.0 (>60); GLUCOSE, FASTING 105 MG/DL (70-100); MAGNESIUM LEVEL 2.2 MG/DL (1.8-2.4); PHOSPHORUS LEVEL 2.7 MG/DL (2.5-4.9); SODIUM LEVEL 139 MEQ/L (136-145)
== END ==
LOC: M LAB 10:24
PROVIDERS: ATTEND Internal Medicine Cardiovascular Disease
DX: I10 Essential (primary) hypertension (principal)

== ENCOUNTER → 2022-01-18 | Outpatient (CLI) | payer MEDICARE, MEDICAID | LOC: M LABSMTC 09:38 | DX: Z20.822 Contact with and (suspected) exposure to COVID-19 (principal) ==

== ENCOUNTER → 2022-01-27 | Outpatient (CLI) | payer MEDICARE, MEDICAID | LOC: M RAD 09:19 | PROVIDERS: ATTEND Internal Medicine Cardiovascular Disease | DX: I10 Essential (primary) hypertension (principal) ==

== ENCOUNTER → 2022-02-11 | Outpatient (CLI) | payer MEDICARE, MEDICAID ==
[~2022-02-11] MED LIST changes: +ISOVUE-370 76% 100ML VIAL As Ordered ONE
== END ==
LOC: M RAD 10:23
PROVIDERS: ATTEND Internal Medicine Cardiovascular Disease
DX: E27.5 Adrenomedullary hyperfunction (principal); I10 Essential (primary) hypertension; K76.0 Fatty (change of) liver, not elsewhere classified
CPT/HCPCS: 74174; Q9967

== ENCOUNTER → 2022-02-16 | Outpatient (CLI) | payer MEDICARE, MEDICAID ==
[~2022-02-16] MED LIST changes: -ISOVUE-370 76% 100ML VIAL As Ordered ONE
[2022-02-16 16:25] LABS: CARBON DIOXIDE LEVEL 23 MMOL/L (20-31); CHLORIDE LEVEL 106 MMOL/L (98-107); POTASSIUM SERUM 4.5 MMOL/L (3.5-5.1); SODIUM LEVEL 138 MMOL/L (136-145)
[2022-02-16 16:30] LABS: CALCIUM LEVEL 10.2 MG/DL (8.5-10.1)
[2022-02-16 16:31] LABS: BLOOD UREA NITROGEN 17 MG/DL (9-23); GLUCOSE, FASTING 95 MG/DL (60-100)
[2022-02-16 16:33] LABS: CREATININE FOR GFR 0.81 MG/DL (0.70-1.30); GLOMERULAR FILTRATION RATE > 60.0 (>60)
== END ==
LOC: M LAB 14:52
PROVIDERS: ATTEND Internal Medicine Cardiovascular Disease
DX: I10 Essential (primary) hypertension (principal)

== ENCOUNTER → 2022-02-18 | Outpatient (REF) | payer MEDICARE, MEDICAID | LOC: M LAB REF 12:37 | PROVIDERS: ATTEND Internal Medicine Cardiovascular Disease | DX: I10 Essential (primary) hypertension (principal) ==

== ENCOUNTER → 2022-05-15 | Outpatient (CLI) | payer MEDICARE, MEDICAID | LOC: M LABSMTC 09:53 | PROVIDERS: ATTEND Orthopaedic Surgery | DX: Z01.812 Encounter for preprocedural laboratory examination (principal); Z20.822 Contact with and (suspected) exposure to COVID-19; Z96.9 Presence of functional implant, unspecified ==

== ENCOUNTER → 2022-09-28 | Outpatient (REF) | payer MEDICARE, MEDICAID ==
[~2022-09-28] MED LIST changes: +ENAL1TAB52 PO; -ENAL20TA11 PO
[2022-09-28 14:06] LABS: THYROID STIMULATING HORMONE 0.931 uIU/ML (0.55-4.78); TOTAL 25(OH) VITAMIN D 32.4 NG/ML (20.0-100.0)
[2022-09-28 14:08] LABS: ALBUMIN 3.9 G/DL (3.2-5.2); ALKALINE PHOSPHATASE 137 U/L (46-116); ALT/SGPT 21 U/L (7.0-40); AST/SGOT < 8 U/L (<34); BILIRUBIN,TOTAL 0.5 MG/DL (0.3-1.2); BLOOD UREA NITROGEN 17 MG/DL (9-23); CALCIUM LEVEL 9.2 MG/DL (8.5-10.1); CARBON DIOXIDE LEVEL 24 MMOL/L (20-31); CHLORIDE LEVEL 105 MMOL/L (98-107); CHOLESTEROL LEVEL 179 MG/DL (<200); CHOLESTEROL RISK RATIO 4.98 (<5); CREATININE FOR GFR 0.83 MG/DL (0.70-1.30); FREE T4 1.24 NG/DL (0.89-1.76); GLOMERULAR FILTRATION RATE > 60.0 (>60); GLUCOSE, FASTING 84 MG/DL (60-100); HDL CHOLESTEROL 35.9 MG/DL (>40); LDL CHOLESTEROL 104.9 MG/DL (<100); NON-HDL-C 143.1 MG/DL; POTASSIUM SERUM 4.4 MMOL/L (3.5-5.1); SODIUM LEVEL 138 MMOL/L (136-145); TOTAL PROTEIN 7.2 G/DL (5.7-8.2); TRIGLYCERIDES LEVEL 191 MG/DL (<150)
== END ==
LOC: M SFHCADAM 10:19
PROVIDERS: ATTEND Physician Assistant Medical
DX: I10 Essential (primary) hypertension (principal); E66.01 Morbid (severe) obesity due to excess calories; R73.01 Impaired fasting glucose

== ENCOUNTER 2022-10-10 09:34 | Emergency (ER) | payer MEDICARE, MEDICAID ==
[~2022-10-10] VITALS: Ht 175.3 cm; Wt 113.3 kg
[2022-10-10 09:34] VITALS: TEMP 97
[2022-10-10] MEDS ORDERED: SEMA2PEN (09:52)
[2022-10-10] MEDS ORDERED: KETOROLAC 30 MG/ML 1ML VIAL IM ONE (11:50)
[2022-10-10 12:29] VITALS: BP 148/88; O2SAT 99
== END 2022-10-10 12:30 | disposition home or self-care (01) ==
LOC: M ED 09:34
DX: S43.101A Unspecified dislocation of right acromioclavicular joint, initial encounter (principal); S42.001A Fracture of unspecified part of right clavicle, initial encounter for closed fracture; V86.55XA Driver of 3- or 4- wheeled all-terrain vehicle (ATV) injured in nontraffic accident, initial encounter; Y92.830 Public park as the place of occurrence of the external cause; Y93.89 Activity, other specified; Y99.8 Other external cause status; I10 Essential (primary) hypertension; Z79.899 Other long term (current) drug therapy
CPT/HCPCS: 73030; 96372; 99283; J1885

== ENCOUNTER → 2023-04-06 | Outpatient (REF) | payer MEDICARE, MEDICAID ==
[~2023-04-06] MED LIST changes: +SEMA2PEN
[2023-04-06 15:22] LABS: BASO # 0.2 10^3/uL (0.0-0.2); BASO % 1.5 % (0.0-1.0); EOS # 0.5 10^3/uL (0.0-0.5); EOS % 4.6 % (0.0-3.0); HEMATOCRIT 50.1 % (42.0-52.0); HEMOGLOBIN 16.8 g/dl (13.5-17.5); LYMPH % 20.4 % (24.0-44.0); MEAN CORPUSCULAR HEMOGLOBIN 30.4 pg (27.0-33.0); MEAN CORPUSCULAR HGB CONC 33.5 g/dl (32.0-36.5); MEAN CORPUSCULAR VOLUME 90.6 fl (80.0-96.0); MONO # 1.1 10^3/uL (0.0-0.8); MONO % 11.1 % (2.0-8.0); NEUTROPHILS # 6.2 10^3/uL (1.5-8.5); NEUTROPHILS % 62.1 % (36.0-66.0); PLATELET COUNT, AUTOMATED 368 10^3/uL (150-450); RED BLOOD COUNT 5.53 10^6/uL (4.30-6.10); WHITE BLOOD COUNT 9.9 10^3/uL (4.0-10.0)
[2023-04-06 15:46] LABS: ALBUMIN 4.1 G/DL (3.2-5.2); ALKALINE PHOSPHATASE 166 U/L (46-116); ALT/SGPT 21 U/L (7.0-40); AST/SGOT 17 U/L (<34); BILIRUBIN,TOTAL 0.6 MG/DL (0.3-1.2); BLOOD UREA NITROGEN 11 MG/DL (9-23); CALCIUM LEVEL 9.7 MG/DL (8.5-10.1); CARBON DIOXIDE LEVEL 26 MMOL/L (20-31); CHLORIDE LEVEL 105 MMOL/L (98-107); CHOLESTEROL LEVEL 168 MG/DL (<200); CHOLESTEROL RISK RATIO 4.78 (<5); CREATININE FOR GFR 0.86 MG/DL (0.70-1.30); GLOMERULAR FILTRATION RATE > 60.0 (>60); GLUCOSE, FASTING 85 MG/DL (60-100); HDL CHOLESTEROL 35.1 MG/DL (>40); LDL CHOLESTEROL 101.5 MG/DL (<100); NON-HDL-C 132.9 MG/DL; POTASSIUM SERUM 4.3 MMOL/L (3.5-5.1); SODIUM LEVEL 139 MMOL/L (136-145); THYROID STIMULATING HORMONE 0.507 uIU/ML (0.55-4.78); TOTAL 25(OH) VITAMIN D 38.2 NG/ML (20.0-100.0); TOTAL PROTEIN 7.4 G/DL (5.7-8.2); TRIGLYCERIDES LEVEL 157 MG/DL (<150)
== END ==
LOC: M SFHCADAM 09:15
PROVIDERS: ATTEND Physician Assistant Medical
DX: I10 Essential (primary) hypertension (principal); E66.01 Morbid (severe) obesity due to excess calories; E55.9 Vitamin D deficiency, unspecified; E78.2 Mixed hyperlipidemia; Z79.899 Other long term (current) drug therapy

== ENCOUNTER → 2023-09-22 | Outpatient (REF) | payer MEDICARE, MEDICAID ==
[2023-09-22 14:35] LABS: FREE T4 1.21 NG/DL (0.89-1.76); THYROID STIMULATING HORMONE 1.149 uIU/ML (0.55-4.78)
== END ==
LOC: M SFHCADAM 08:40
PROVIDERS: ATTEND Physician Assistant Medical
DX: E66.01 Morbid (severe) obesity due to excess calories (principal); F34.1 Dysthymic disorder; Z79.899 Other long term (current) drug therapy

== ENCOUNTER → 2024-04-10 | Outpatient (CLI) | payer MEDICARE, MEDICAID ==
[2024-04-10 13:28] LABS: BASO # 0.2 10^3/uL (0.0-0.2); BASO % 1.8 % (0.0-1.0); EOS # 0.5 10^3/uL (0.0-0.5); EOS % 5.8 % (0.0-3.0); HEMATOCRIT 50.1 % (42.0-52.0); LYMPH # 1.6 10^3/uL (1.5-5.0); LYMPH % 19.1 % (24.0-44.0); MEAN CORPUSCULAR HGB CONC 33.9 g/dl (32.0-36.5); MEAN CORPUSCULAR VOLUME 88.4 fl (80.0-96.0); MONO # 0.7 10^3/uL (0.0-0.8); MONO % 8.9 % (2.0-8.0); NEUTROPHILS # 5.4 10^3/uL (1.5-8.5); PLATELET COUNT, AUTOMATED 299 10^3/uL (150-450); RED BLOOD COUNT 5.67 10^6/uL (4.30-6.10); WHITE BLOOD COUNT 8.3 10^3/uL (4.0-10.0)
[2024-04-10 13:52] LABS: THYROID STIMULATING HORMONE 1.116 uIU/ML (0.55-4.78); URIC ACID 6.9 MG/DL (3.7-9.2)
[2024-04-10 13:53] LABS: TOTAL 25(OH) VITAMIN D 26.2 NG/ML (20.0-100.0)
[2024-04-10 13:56] LABS: ALBUMIN 4.3 G/DL (3.2-5.2); ALKALINE PHOSPHATASE 184 U/L (40-129); ALT/SGPT 23 U/L (7.0-40); AST/SGOT 18 U/L (<34); BILIRUBIN,TOTAL 0.6 MG/DL (0.3-1.2); BLOOD UREA NITROGEN 12 MG/DL (9-23); CALCIUM LEVEL 9.8 MG/DL (8.5-10.1); CARBON DIOXIDE LEVEL 23 MMOL/L (20-31); CHLORIDE LEVEL 110 MMOL/L (98-107); CHOLESTEROL LEVEL 205 MG/DL (<200); CHOLESTEROL RISK RATIO 5.64 (<5); CREATININE FOR GFR 0.86 MG/DL (0.70-1.30); GLOMERULAR FILTRATION RATE > 60.0 (>60); GLUCOSE, FASTING 96 MG/DL (60-100); HDL CHOLESTEROL 36.3 MG/DL (>40); LDL CHOLESTEROL 138.5 MG/DL (<100); NON-HDL-C 168.7 MG/DL; POTASSIUM SERUM 4.4 MMOL/L (3.5-5.1); SODIUM LEVEL 141 MMOL/L (136-145); TOTAL PROTEIN 7.6 G/DL (5.7-8.2); TRIGLYCERIDES LEVEL 151 MG/DL (<150)
== END ==
LOC: M LABDRWAD 10:19
PROVIDERS: ATTEND Physician Assistant Medical
DX: I10 Essential (primary) hypertension (principal); Q78.0 Osteogenesis imperfecta; M1A.9XX0 Chronic gout, unspecified, without tophus (tophi); E78.1 Pure hyperglyceridemia

== ENCOUNTER → 2024-05-24 | Outpatient (REF) | payer MEDICARE, MEDICAID ==
[2024-05-24 18:29] LABS: ALBUMIN 4.1 G/DL (3.2-5.2); BLOOD UREA NITROGEN 16 MG/DL (9-23); CALCIUM LEVEL 9.4 MG/DL (8.5-10.1); CARBON DIOXIDE LEVEL 25 MMOL/L (20-31); CHLORIDE LEVEL 109 MMOL/L (98-107); GLOMERULAR FILTRATION RATE > 60.0 (>60); GLUCOSE, FASTING 81 MG/DL (60-100); MAGNESIUM LEVEL 1.9 MG/DL (1.8-2.4); PHOSPHORUS LEVEL 3.8 MG/DL (2.5-4.9); POTASSIUM SERUM 4.3 MMOL/L (3.5-5.1); SODIUM LEVEL 143 MMOL/L (136-145)
== END ==
LOC: M LABWUC 17:21
PROVIDERS: ATTEND Registered Nurse
DX: I11.9 Hypertensive heart disease without heart failure (principal)

== ENCOUNTER → 2024-06-22 | Outpatient (REF) | payer MEDICARE, MEDICAID ==
[2024-06-22 14:54] LABS: ALBUMIN 4.2 G/DL (3.2-5.2); BILIRUBIN,DIRECT 0.2 MG/DL (<0.4); BILIRUBIN,TOTAL 0.6 MG/DL (0.3-1.2); CHOLESTEROL RISK RATIO 3.42 (<5); HDL CHOLESTEROL 34.2 MG/DL (>40); LDL CHOLESTEROL 60.6 MG/DL (<100); NON-HDL-C 82.8 MG/DL; TOTAL PROTEIN 7.6 G/DL (5.7-8.2)
== END ==
LOC: M LABDRWAD 13:26
PROVIDERS: ATTEND Registered Nurse
DX: E78.2 Mixed hyperlipidemia (principal)

== ENCOUNTER → 2024-07-21 | Outpatient (CLI) | payer MEDICARE, MEDICAID | LOC: M CARPUL 11:21 | PROVIDERS: ATTEND Registered Nurse | DX: I77.810 Thoracic aortic ectasia (principal) ==

== ENCOUNTER → 2024-11-21 | Outpatient (CLI) | payer MEDICARE, MEDICAID ==
[~2024-11-21] MED LIST changes: -IBUP-1022 PO; +IBUP600T42 PO; -PROZ20CA11 PO; +PROZ20CA12 PO
[2024-11-21 17:45] LABS: CALCIUM LEVEL 9.6 MG/DL (8.5-10.1); CARBON DIOXIDE LEVEL 29.0 MMOL/L (20-31); CHLORIDE LEVEL 102.0 MMOL/L (98-107); CREATININE FOR GFR 1.08 MG/DL (0.70-1.30); GLOMERULAR FILTRATION RATE 88.4 (>60); PHOSPHORUS LEVEL 2.6 MG/DL (2.5-4.9); POTASSIUM SERUM 3.6 MMOL/L (3.5-5.1); SODIUM LEVEL 142.0 MMOL/L (136-145)
== END ==
LOC: M LABDRWAD 11:59
PROVIDERS: ATTEND Registered Nurse
DX: I11.9 Hypertensive heart disease without heart failure (principal)

== ENCOUNTER → 2025-01-22 | Outpatient (REF) | payer MEDICARE, MEDICAID ==
[2025-01-22 14:14] LABS: ALT/SGPT 23 U/L (7.0-40); AST/SGOT 22 U/L (<34); CALCIUM LEVEL 9.9 MG/DL (8.5-10.1); CARBON DIOXIDE LEVEL 25 MMOL/L (20-31); CHLORIDE LEVEL 102 MMOL/L (98-107); CHOLESTEROL LEVEL 152 MG/DL (<200); CHOLESTEROL RISK RATIO 3.60 (<5); CREATININE FOR GFR 1.03 MG/DL (0.70-1.30); FREE T4 1.42 NG/DL (0.89-1.76); GLOMERULAR FILTRATION RATE > 90.0 (>60); LDL CHOLESTEROL 85.0 MG/DL (<100); NON-HDL-C 109.8 MG/DL; POTASSIUM SERUM 3.8 MMOL/L (3.5-5.1); SODIUM LEVEL 139 MMOL/L (136-145); TOTAL 25(OH) VITAMIN D 32.2 NG/ML (20.0-100.0); TRIGLYCERIDES LEVEL 124 MG/DL (<150)
[2025-01-22 14:22] LABS: ESTIMATED AVERAGE GLUCOSE 94.0 MG/DL (60-110)
[2025-01-22 14:23] LABS: BASO # 0.2 10^3/uL (0.0-0.2); BASO % 1.8 % (0.0-1.0); EOS # 0.7 10^3/uL (0.0-0.5); EOS % 6.2 % (0.0-3.0); LYMPH # 2.5 10^3/uL (1.5-5.0); LYMPH % 21.5 % (24.0-44.0); MONO # 1.1 10^3/uL (0.0-0.8); MONO % 9.1 % (2.0-8.0); NEUTROPHILS # 7.0 10^3/uL (1.5-8.5); NEUTROPHILS % 61.0 % (36.0-66.0); PLATELET COUNT, AUTOMATED 346 10^3/uL (150-450)
== END ==
LOC: M SFHCADAM 08:59
PROVIDERS: ATTEND Physician Assistant Medical
DX: Q78.0 Osteogenesis imperfecta (principal); I10 Essential (primary) hypertension; E55.9 Vitamin D deficiency, unspecified; E78.1 Pure hyperglyceridemia